=== PATIENT | female | born 1980 | race Caucasian/White ===

== ENCOUNTER 2018-08-11 13:54 | Emergency (ER) | payer BC, OTHER ==
--- OUTSIDE RECORDS SUMMARY | 2018-08-11 13:59 | XMS REPORT | Continuity of Care Document ---
:1980 External Reference #:[id number] Author Name Darnell Barbosa N.P. Address [address] [place] [address] [address] [place] [address] Care Team Providers Name Role Phone Jessica Thomas MD Care Team Information Transplanter Orchid Unavailable Payers Type Date Identification Numbers Payment Provider Subscriber Effective: Policy Number: [id number] [facility] Tracie [place] 2015 re PayID: [id number] [employer] [address] [place] [address] Expires: 2015 Policy Number: Medicaid/[employer] Tracie Linden [place] [id number] PayID: [id number] [address] [place] [address] Effective: 2010 Policy Number: [id number] [employer] Tracie Linden J[place] Expires: 2010 [address] [address] [place] [address] Advance Directives Description No Information Available Problems Date Description Provider Status Onset: Anxiety state 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 Active Onset: Depressive disorder Jessica Thomas M.D. Active Onset: Tobacco user Jessica Thomas M.D. Active Onset: Allergic rhinitis Jessica Thomas M.D. 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 Active Onset: 05/23/2015 Major depressive disorder, single Jessica Thomas M.D. Active episode, unspecified Onset: 05/23/2015 Other malaise Jessica Thomas M.D. Active Family History Date Family Member(s) Problem(s) Comments Father No Current Problems Father 64 Mother No Current Problems Mother 62 Children 2 First Son 15 First Son No Current Problems Second Son 10 Second Son No Current Problems Siblings 1 Siblings None Social History Type Date Description Comments Sex Unknown Marital Status Legal Status: Never Tobacco Use Start: Unknown End: Former Cigarette Smoker Unknown Smoking Status Reviewed: 09/19/17 Former Cigarette Smoker ETOH Use Rarely consumed alcohol in the past Tobacco Use Start: Unknown End: Patient is a former smoker QUIT JANUARY 2017 Unknown Allergies, Adverse Reactions, Alerts Description No Known Drug Allergies Medications Medication Date Status Form Strength Qnty SIG Indications Ordering Provider Benadryl Active Tablets 25mg 60tabs 2 tab by J30.9 William, Allergy 018 mouth every Ahmad M., night at M.D. bedtime as needed congestion Amoxicillin/C Active Tablets 875-125mg 30tabs 1 tab by J01.40 William, lavulanate 018 mouth twice Ahmad M., Potassium a day M.D. Zyrtec Active Tablets 10mg 30tabs 1 by mouth J30.9 William, Allergy 014 every day Jessica Morelos M.D. Proair HFA Active Aerosol 108(90Base 17gm inhale 2 J45.909 William 014 ) mcg/Act puffs by Ahmad M., mouth every M.D. 4 hours if needed R06.02 Fluticasone 12/18/2013 Active Suspension 50mcg/Act 1bottle 2 sprays J30.9 William, Propionate to each Ahmad nostril M. M.D. every day Xanax 11/19/2011 Active Tablets 0.5mg 90tabs 1 tab by F41.9 William, mouth Ahmad three M., M.D. times a day as needed G47.00 Citalopram 11/19/2011 Active Tablets 40mg 90tabs take one F41.9 William, Hydrobromide tablet by Jessica Morelos, mouth at M.D. bedtime F32.9 R53.81 Levofloxacin Hx Tablets 500mg 10tabs tab 1 by mouth J45.909 William, Jessica 8 - every day Tran Morelos 8 Advair Diskus Hx Aerosol 250-50mc 60units inhale one R06.02 William, mad 7 - g/Dose puff by mouth Tran Morelos twice a day 7 J45.909 Prednisone 08/29/2016 - Hx Tablets 20mg 18tabs 3 tab by mouth J45.51 William, 09/08/2016 daily 3 days, Ahmad then 2 tab Tran oMrelos daily x 3 d , then 1 tab daily 3d Levofloxacin 08/29/2016 - Hx Tablets 500mg 10tabs tab 1 by mouth J20.9 William, 09/08/2016 every day Jessica Morelos M.D. Tamiflu 08/29/2016 - Hx Capsules 75mg 10caps Tab One bid B34.9 William, 09/03/2016 Jessica Morelos M.D. Amoxicillin 07/26/2016 - Hx Tablets 500mg 40tabs 2 by mouth J18.9 William , 08/04/2016 twice a day Jessica Morelos M.D. Prednisone 07/26/2016 - Hx Tablets 20mg 18tabs 2 tab by mouth J20.9 William, 08/10/2016 daily 4 days, Ahmad 30 Tran Morelos mgx3d,[id number],1 0mgx7d Ceftriaxone 07/26/2016 - Hx Solution 1gm injection J18.9 William, Sodium 07/27/2016 Rec intramuscular r Jessica buttock x1 Tran Morelos Advair Diskus 11/10/2015 - Hx Aerosol 250-50 60units inhale one puff R06.02 William, 06/26/2016 mcg/Do by mouth twice Ahmad se a day Tran Morelos J45.909 Amoxicillin 11/10/2015 - Hx Tablets 500mg 40tabs 2 by mouth H66.93 William, 11/20/2015 twice a Ahmad M., day M.D. Wellbutrin XL 06/22/2015 - Hx Tablets ER 150mg 60tabs start 1 by F17.211 William, 10/01/2016 24HR mouth Ahmad M., twice M.D. Amoxicillin 12/15/2014 - Hx Tablets 500mg 30tabs 1 by mouth 382.9 William , 12/24/2014 three Ahmad M., times a M.D. day 466.0 461.8 Clarithromycin 06/22/2014 - Hx Tablets 500mg 20tabs 1 by mouth 466.0 William, mad 07/01/2014 twice a day M., MJudiD. 382.9 461.8 Prednisone 06/22/2014 - Hx Tablets 20mg 8tabs 2 tab [facility] 466.0 [facility] mouth daily 4 M., M.D. days 786.05 478.19 Work Note 04/21/2014 - Hx Tracie will be Thad 10/01/2016 oow on Monica, SENIOR GEOTECHNICAL ENGINEER 04/22/2014 and may return on 04/23/2014. Thank you. Naproxen 02/03/2014 - Hx Tablets 500mg 60tab 1 tab by mouth [facility] s twice a day as MJudi MJudiD. needed pain Cephalexin 02/03/2014 - Hx Capsules 500mg 20cap 1 tab by mouth 681.1 William, mad 02/11/2014 s twice a day x10 0 M., M.D. days Amoxicillin 11/13/2013 - Hx Tablets 500mg 20tab 1 by mouth 382.9 William , mad 12/15/2014 s twice a day M., M.D. 462 461.9 Mucinex Maximum 11/13/2013 - Hx Tablets ER 1200mg 30tabs 1 po bid 382.9 William, Strength 11/17/2013 12HR AhTamy MccallD. Amoxicillin 09/21/2013 - Hx Tablets 500mg 20tabs 1 by 382.9 William, 10/01/2013 mouth Jessica Morelos, twice a M.D. day Azithromycin 06/29/2013 - Hx Tablets 250mg 1pack z kai uad 461.8 William, 07/04/2013 Jessica Morelos M.D. 382.9 Prednisone 06/29/2013 - Hx Tablets 20mg 8tabs 2 tab by 461.8 William, Jessica 07/03/2013 mouth daily 4 M., M.D. days 786.05 478.19 Ondansetron Odt 03/12/2013 - Hx Tablets 4mg 30tabs 1 tab q6 787.01 [facility], 03/16/2013 Dispers hours prn Jessica Morelos, for nausea M.D. Clarithromycin 01/01/2013 - Hx Tablets 500mg 20tabs 1 tab by 466.0 William, 01/12/2013 mouth x Jessica Morelos, 10d M.DJudi 461.8 382.9 Prednisone 01/01/2013 - Hx Tablets 20mg 8tabs 2 tab by 466.0 Willima, michael 01/07/2013 mouth daily 4 M., M.DJudi days 786.05 478.19 Medications Administered in Office Medication Date Status Form Strength Qnty SIG Indications Ordering Provider Bob 250 07/26/20 Administered Injection [facility], 16 Jessica Morelos M.D. Immunizations CPT Code Status Date Vaccine Lot # [id number] Given 05/27/2015 TDaP 27576 Given 06/29/2014 Flu Vaccine [id number] Given 06/22/2014 Flu Vaccine [id number] Vital Signs Date Vital Result Comment 07/16/2018 2:18pm BP Systolic 118 mmHg BP Diastolic 68 mmHg Height 64 inches 5'4" Weight 160.00 lb BMI (Body Mass Index) 27.5 kg/m2 Heart Rate 71 /min Respiratory Rate 16 /min 06/17/2018 2:38pm BP Systolic 110 mmHg BP Diastolic 68 mmHg Height 64 inches 5'4" Weight 153.00 lb BMI (Body Mass Index) 26.3 kg/m2 Heart Rate 69 /min Respiratory Rate 16 /min 05/15/2018 10:03am BP Systolic 127 mmHg BP Diastolic 62 mmHg Height 64 inches 5'4" Weight 157.00 lb BMI (Body Mass Index) 26.9 kg/m2 Heart Rate 57 /min Respiratory Rate 14 /min 04/07/2018 2:26pm BP Systolic 110 mmHg BP Diastolic 62 mmHg Height 64 inches 5'4" Weight 153.00 lb BMI (Body Mass Index) 26.3 kg/m2 Heart Rate 76 /min Respiratory Rate 14 /min 03/06/2018 2:20pm BP Systolic 118 mmHg BP Diastolic 62 mmHg Height 64 inches 5'4" Weight 155.00 lb BMI (Body Mass Index) 26.6 kg/m2 Heart Rate 68 /min Respiratory Rate 16 /min 02/04/2018 2:33pm BP Systolic 118 mmHg BP Diastolic 68 mmHg Height 64 inches 5'4" Weight 160.00 lb BMI (Body Mass Index) 27.5 kg/m2 Heart Rate 96 /min Respiratory Rate 18 /min 01/02/2018 2:50pm BP Systolic 100 mmHg BP Diastolic 62 mmHg Height 64 inches 5'4" Weight 158.00 lb BMI (Body Mass Index) 27.1 kg/m2 Heart Rate 76 /min Respiratory Rate 18 /min 11/28/2017 1:24pm BP Systolic 110 mmHg BP Diastolic 62 mmHg Height 64 inches 5'4" Weight 148.00 lb BMI (Body Mass Index) 25.4 kg/m2 Heart Rate 68 /min Respiratory Rate 18 /min 10/29/2017 2:31pm BP Systolic 110 mmHg BP Diastolic 70 mmHg Height 64 inches 5'4" Weight 150.00 lb BMI (Body Mass Index) 25.7 kg/m2 Heart Rate 72 /min Respiratory Rate 18 /min 09/19/2017 2:32pm BP Systolic 110 mmHg BP Diastolic 62 mmHg Height 64 inches 5'4" Weight 150.00 lb BMI (Body Mass Index) 25.7 kg/m2 Heart Rate 79 /min Respiratory Rate 18 /min 08/14/2017 2:26pm BP Systolic 100 mmHg BP Diastolic 62 mmHg Height 64 inches 5'4" Weight 150.00 lb BMI (Body Mass Index) 25.7 kg/m2 Heart Rate 75 /min Respiratory Rate 18 /min 07/15/2017 2:17pm BP Systolic 108 mmHg BP Diastolic 64 mmHg Height 64 inches 5'4" Weight 146.00 lb BMI (Body Mass Index) 25.1 kg/m2 Heart Rate 83 /min Respiratory Rate 16 /min 01/14/2017 2:33pm BP Systolic 108 mmHg BP Diastolic 60 mmHg Height 64 inches 5'4" Weight 144.00 lb BMI (Body Mass Index) 24.7 kg/m2 Heart Rate 72 /min Respiratory Rate 16 /min 11/27/2016 2:51pm BP Systolic 110 mmHg BP Diastolic 68 mmHg Height 64 inches 5'4" Weight 146.00 lb BMI (Body Mass Index) 25.1 kg/m2 Heart Rate 91 /min Respiratory Rate 18 /min 10/01/2016 2:23pm BP Systolic 118 mmHg BP Diastolic 68 mmHg Height 64 inches 5'4" Weight 149.00 lb BMI (Body Mass Index) 25.6 kg/m2 Heart Rate 97 /min Respiratory Rate 18 /min 08/29/2016 11:28am BP Systolic 100 mmHg BP Diastolic 70 mmHg Height 64 inches 5'4" Weight 144.00 lb BMI (Body Mass Index) 24.7 kg/m2 Heart Rate 89 /min Respiratory Rate 18 /min 08/14/2016 2:38pm BP Systolic 100 mmHg BP Diastolic 62 mmHg Height 64 inches 5'4" Weight 153.00 lb BMI (Body Mass Index) 26.3 kg/m2 Heart Rate 78 /min Respiratory Rate 20 /min 07/26/2016 10:38am BP Systolic 118 mmHg BP Diastolic 70 mmHg Height 64 inches 5'4" Weight 152.00 lb BMI (Body Mass Index) 26.1 kg/m2 Heart Rate 62 /min Respiratory Rate 20 /min 07/12/2016 3:21pm BP Systolic 124 mmHg BP Diastolic 78 mmHg Height 64 inches 5'4" Weight 149.00 lb BMI (Body Mass Index) 25.6 kg/m2 Heart Rate 87 /min Respiratory Rate 18 /min 11/10/2015 3:00pm BP Systolic 119 mmHg BP Diastolic 74 mmHg Height 64 inches 5'4" Weight 150.00 lb BMI (Body Mass Index) 25.7 kg/m2 Heart Rate 82 /min Respiratory Rate 18 /min 09/27/2015 3:14pm BP Systolic 105 mmHg BP Diastolic 58 mmHg Height 64 inches 5'4" Weight 147.00 lb BMI (Body Mass Index) 25.2 kg/m2 Heart Rate 88 /min Body Temperature 96.4 F Respiratory Rate 20 /min 06/22/2015 3:10pm BP Systolic 121 mmHg BP Diastolic 68 mmHg Height 64 inches 5'4" Weight 147.00 lb BMI (Body Mass Index) 25.2 kg/m2 Heart Rate 77 /min Respiratory Rate 18 /min 05/23/2015 3:55pm BP Systolic 120 mmHg BP Diastolic 80 mmHg Height 64 inches 5'4" Weight 144.00 lb BMI (Body Mass Index) 24.7 kg/m2 Heart Rate 72 /min Respiratory Rate 18 /min 04/20/2015 4:08pm BP Systolic 98 mmHg BP Diastolic 58 mmHg Height 64 inches 5'4" Weight 142.00 lb BMI (Body Mass Index) 24.4 kg/m2 Heart Rate 88 /min Respiratory Rate 15 /min 04/06/2015 3:39pm BP Systolic 116 mmHg BP Diastolic 82 mmHg Height 64 inches 5'4" Weight 144.00 lb BMI (Body Mass Index) 24.7 kg/m2 Heart Rate 80 /min Respiratory Rate 16 /min 03/23/2015 3:19pm BP Systolic 117 mmHg BP Diastolic 57 mmHg Height 64 inches 5'4" Weight 144.00 lb BMI (Body Mass Index) 24.7 kg/m2 Heart Rate 77 /min Respiratory Rate 16 /min 12/15/2014 4:20pm BP Systolic 115 mmHg BP Diastolic 67 mmHg Height 64 inches 5'4" Weight 152.00 lb BMI (Body Mass Index) 26.1 kg/m2 Heart Rate 85 /min Body Temperature 97.3 F Respiratory Rate 16 /min 09/16/2014 4:09pm BP Systolic 129 mmHg BP Diastolic 82 mmHg Height 64 inches 5'4" Weight 157.00 lb BMI (Body Mass Index) 26.9 kg/m2 Heart Rate 98 /min Respiratory Rate 15 /min 08/16/2014 3:59pm BP Systolic 112 mmHg BP Diastolic 74 mmHg Height 64 inches 5'4" Weight 161.00 lb BMI (Body Mass Index) 27.6 kg/m2 Heart Rate 72 /min Respiratory Rate 16 /min 07/19/2014 4:09pm BP Systolic 126 mmHg BP Diastolic 72 mmHg Height 64 inches 5'4" Weight 165.00 lb BMI (Body Mass Index) 28.3 kg/m2 Heart Rate 76 /min Respiratory Rate 14 /min 06/22/2014 4:10pm BP Systolic 123 mmHg BP Diastolic 78 mmHg Height 64 inches 5'4" Weight 164.00 lb BMI (Body Mass Index) 28.1 kg/m2 Heart Rate 97 /min Respiratory Rate 18 /min 05/24/2014 3:54pm BP Systolic 122 mmHg BP Diastolic 68 mmHg Height 64 inches 5'4" Weight 162.00 lb BMI (Body Mass Index) 27.8 kg/m2 Heart Rate 86 /min Respiratory Rate 18 /min 04/21/2014 2:25pm BP Systolic 98 mmHg BP Diastolic 71 mmHg Height 64 inches 5'4" Weight 155.00 lb BMI (Body Mass Index) 26.6 kg/m2 Heart Rate 69 /min Body Temperature 96.0 F Respiratory Rate 18 /min 04/15/2014 3:52pm BP Systolic 124 mmHg BP Diastolic 78 mmHg Height 64 inches 5'4" Weight 164.00 lb BMI (Body Mass Index) 28.1 kg/m2 Respiratory Rate 18 /min 03/25/2014 3:06pm BP Systolic 104 mmHg BP Diastolic 69 mmHg Height 64 inches 5'4" Weight 160.00 lb BMI (Body Mass Index) 27.5 kg/m2 Heart Rate 94 /min Body Temperature 98.0 F Respiratory Rate 18 /min 02/03/2014 2:06pm BP Systolic 102 mmHg BP Diastolic 62 mmHg Height 64 inches 5'4" Weight 160.00 lb BMI (Body Mass Index) 27.5 kg/m2 Heart Rate 96 /min Respiratory Rate 18 /min 01/12/2014 4:02pm BP Systolic 107 mmHg BP Diastolic 67 mmHg Height 64 inches 5'4" Weight 156.00 lb BMI (Body Mass Index) 26.8 kg/m2 Heart Rate 79 /min Respiratory Rate 18 /min 12/18/2013 2:16pm BP Systolic 109 mmHg BP Diastolic 71 mmHg Height 64 inches 5'4" Weight 158.00 lb BMI (Body Mass Index) 27.1 kg/m2 Heart Rate 79 /min Body Temperature 97.5 F Respiratory Rate 20 /min 12/15/2013 4:02pm BP Systolic 101 mmHg BP Diastolic 55 mmHg Height 64 inches 5'4" Weight 158.00 lb BMI (Body Mass Index) 27.1 kg/m2 Heart Rate 81 /min Respiratory Rate 18 /min 11/13/2013 11:20am BP Systolic 128 mmHg BP Diastolic 76 mmHg Height 64 inches 5'4" Weight 159.00 lb BMI (Body Mass Index) 27.3 kg/m2 Heart Rate 69 /min Body Temperature 98.2 F Respiratory Rate 18 /min 10/20/2013 2:00pm BP Systolic 113 mmHg BP Diastolic 71 mmHg Height 64 inches 5'4" Weight 156.00 lb BMI (Body Mass Index) 26.8 kg/m2 Heart Rate 66 /min Respiratory Rate 18 /min 09/21/2013 3:35pm BP Systolic 115 mmHg BP Diastolic 72 mmHg Height 64 inches 5'4" Weight 156.00 lb BMI (Body Mass Index) 26.8 kg/m2 Heart Rate 84 /min Body Temperature 97.6 F 08/25/2013 9:47am BP Systolic 106 mmHg BP Diastolic 67 mmHg Height 64 inches 5'4" Weight 154.00 lb BMI (Body Mass Index) 26.4 kg/m2 Heart Rate 81 /min Respiratory Rate 18 /min 07/28/2013 10:39am BP Systolic 117 mmHg BP Diastolic 71 mmHg Height 64 inches 5'4" Weight 156.00 lb BMI (Body Mass Index) 26.8 kg/m2 Heart Rate 74 /min Respiratory Rate 18 /min 06/29/2013 10:28am BP Systolic 110 mmHg BP Diastolic 72 mmHg Height 64 inches 5'4" Weight 147.00 lb BMI (Body Mass Index) 25.2 kg/m2 Heart Rate 76 /min Body Temperature 97.8 F Respiratory Rate 20 /min 06/04/2013 9:42am BP Systolic 103 mmHg BP Diastolic 65 mmHg Height 64 inches 5'4" Weight 145.00 lb BMI (Body Mass Index) 24.9 kg/m2 Heart Rate 63 /min Respiratory Rate 20 /min 05/06/2013 10:09am BP Systolic 118 mmHg BP Diastolic 74 mmHg Height 64 inches 5'4" Weight 141.00 lb BMI (Body Mass Index) 24.2 kg/m2 Heart Rate 76 /min Respiratory Rate 16 /min 04/07/2013 1:29pm BP Systolic 112 mmHg BP Diastolic 70 mmHg Height 64 inches 5'4" Weight 145.00 lb BMI (Body Mass Index) 24.9 kg/m2 Heart Rate 73 /min Respiratory Rate 20 /min 03/17/2013 10:25am BP Systolic 110 mmHg BP Diastolic 62 mmHg Height 64 inches 5'4" Weight 155.00 lb BMI (Body Mass Index) 26.6 kg/m2 Heart Rate 81 /min Body Temperature 97.3 F Respiratory Rate 20 /min 03/12/2013 10:45am BP Systolic 124 mmHg BP Diastolic 64 mmHg Height 64 inches 5'4" Weight 155.00 lb BMI (Body Mass Index) 26.6 kg/m2 Heart Rate 77 /min Body Temperature 97.7 F Respiratory Rate 20 /min 02/03/2013 9:54am BP Systolic 102 mmHg BP Diastolic 68 mmHg Height 64 inches 5'4" Weight 165.00 lb BMI (Body Mass Index) 28.3 kg/m2 Heart Rate 69 /min Respiratory Rate 20 /min 01/01/2013 10:56am BP Systolic 118 mmHg BP Diastolic 60 mmHg Height 64 inches 5'4" Weight 163.00 lb BMI (Body Mass Index) 28.0 kg/m2 Heart Rate 91 /min Body Temperature 99.1 F Respiratory Rate 18 /min 12/02/2012 9:26am BP Systolic 110 mmHg BP Diastolic 68 mmHg Height 64 inches 5'4" Weight 164.00 lb BMI (Body Mass Index) 28.1 kg/m2 Heart Rate 74 /min Respiratory Rate 14 /min 11/04/2012 11:40am BP Systolic 116 mmHg BP Diastolic 72 mmHg Height 64 inches 5'4" Weight 165.00 lb BMI (Body Mass Index) 28.3 kg/m2 Heart Rate 91 /min Respiratory Rate 18 /min 10/06/2012 12:57pm BP Systolic 118 mmHg BP Diastolic 70 mmHg Height 64 inches 5'4" Weight 163.00 lb BMI (Body Mass Index) 28.0 kg/m2 Heart Rate 83 /min Respiratory Rate 20 /min 09/02/2012 2:03pm BP Systolic 110 mmHg BP Diastolic 60 mmHg Height 64 inches 5'4" Weight 157.00 lb BMI (Body Mass Index) 26.9 kg/m2 Heart Rate 78 /min Respiratory Rate 16 /min 07/29/2012 11:23am BP Systolic 110 mmHg BP Diastolic 80 mmHg Height 64 inches 5'4" Weight 154.00 lb BMI (Body Mass Index) 26.4 kg/m2 Heart Rate 78 /min Respiratory Rate 14 /min 06/17/2012 10:00am BP Systolic 112 mmHg BP Diastolic 76 mmHg Height 64 inches 5'4" Weight 142.00 lb BMI (Body Mass Index) 24.4 kg/m2 Heart Rate 60 /min Respiratory Rate 16 /min 04/29/2012 10:27am BP Systolic 125 mmHg BP Diastolic 63 mmHg Height 64 inches 5'4" Weight 1.00 lb BMI (Body Mass Index) 0.2 kg/m2 Heart Rate 70 /min Respiratory Rate 15 /min 11/20/2011 10:27am BP Systolic 114 mmHg BP Diastolic 76 mmHg Height 64 inches 5'4" Weight 160.00 lb BMI (Body Mass Index) 27.5 kg/m2 Heart Rate 82 /min Results Test Date Facility Test Result H/L Range Note CBC With Diff 05/15/2018 [facility] WBC 7.9 10*3/uL (4.1-11.0) [address] (607)- - RBC 5.88 10*6/uL High (4.00-5.40) HGB 11.9 g/dL Low (12.0-16.0) HCT 38.5 % (36.0-47.0) MCV 65.5 fL Low (80.0-95.0) MCH 20.2 pg Low (27.0-32.0) MCHC 30.9 g/dL Low (32.0-36.0) RDW 16.6 % High (10.5-14.5) PLT 269 10*3/uL (150-450) MPV 9.7 fL (7.1-10.7) Neut % 50.5 % (35.0-75.0) Lymph % 37.1 % (16.0-52.0) Sterling % 4.1 % (0.0-8.0) Eos % 6.8 % High (0.0-5.0) Baso % 1.5 % (0.0-4.0) Neut # 4.0 10*3/uL (1.8-7.7) Lymph # 2.9 10*3/uL (1.2-4.8) Sterling # 0.3 10*3/uL (0.0-0.8) Eos # 0.5 10*3/uL (0.0-0.5) Baso # 0.1 10*3/uL (0.0-0.2) CMP 05/15/2018 [facility] Sodium 143 mmol/L (136-145) [address] (607)- - Potassium 4.3 mmol/L (3.6-5.2) Chloride 110 mmol/L High (100-108) Co2 24 mmol/L (22-31) Anion Gap 9 mmol/L (7-16) Urea Nitrogen 17 mg/dL (7-24) Creatinine 0.75 mg/dL (0.60-1.00) BUN/Creat Ratio 22.7 RATIO High (10.0-20.0) Glucose 73 mg/dL (70-99) Calcium 8.6 mg/dL (8.4-10.2) Total Protein 6.7 g/dL (6.4-8.2) Albumin 4.1 g/dL (3.5-4.6) Globulin 2.6 g/dL Low (2.7-4.3) Alb/Glob Ratio 1.6 RATIO Alkaline Phosphatase 44 U/L Low (45-117) Bilirubin,Total 0.5 mg/dL (0.0-1.0) Ast (Sgot) 29 U/L (11-39) Alt (SGPT) 26 U/L (12-78) GFR >60 ml/min/1.73m2 (>59) GFR ( Amer) >60 ml/min/1.73m2 (>59) GFR Interpretation <SEE NOTE> 1 Lipid 05/15/2018 [facility] Cholesterol @ 183 mg/dL (0-200) [address] (607)- - Triglyceride @ 71 mg/dL (30-200) HDL Cholesterol @ 53 mg/dL (>40) 2 Chol/HDL Ratio 3.5 RATIO 3 LDL Chol (Calc) 116 mg/dL (<130) 4 Laboratory test 05/15/2018 [facility] 25 Hydroxy Vit 33 ng/mL (31-100 ) 5 finding [address] @ (607)- - TSH,Ultrasensitive @ 1.130 mIU/L (0.360-4.170) Basic Metabolic Panel 01/24/2017 [facility] Glucose 136 mg/dL High 74-106 6 BUN 13 mg/dL 7-18 Creatinine 0.7 mg/dL 0.6-1.3 Glom Filtration Rate, Estimate >60 mL/min >60 If >60 mL/min >60 7 BUN/Creat 18.5 ratio Sodium 142 mmol/L 136-145 Potassium 4.4 mmol/L 3.5-5.1 Chloride 110 mmol/L High 98-107 Carbon Dioxide 20 mmol/L Low 21-32 Anion Gap 12 mEq/L 8-16 Calcium 8.5 mg/dL 8.5-10.1 CBS W/Automated Diff 01/23/2017 [facility] White Blood Count 8.6 K/uL 3.1- 10.7 8 Red Blood Count 5.64 M/uL High 3.90-5.40 Hemoglobin 11.8 gm/dL 11.6-15.8 Hematocrit 35.1 % Low 36.0-46.1 Mean Cell Volume 62.2 fl Low 80.9-99.0 Mean Corpuscular HGB 20.9 pg Low 25.9-32.7 Mean Corpuscular HGB Conc 33.6 g/dL 30.8-34.3 Platelet Count 270 K/uL 150-400 Red Cell Distri Width SD 34.8 fl 3-47 Red Cell Distri Width %CV 16.1 % High 11.7-14.4 Mean Platelet Volume 10.2 fL 8.9-12.4 9 Neut# 7.80 K/uL High 1.8-7.0 Lymph # 0.53 K/uL Low 1.0-4.0 Sterling # 0.09 K/uL Low 0.3-0.9 Eos # 0.12 K/uL 0.0-0.5 Baso # 0.05 K/uL 0.0-0.1 Slide Review 01/23/2017 [facility] Slide Review DIFF ORDERED Path Review: 01/23/2017 [facility] Path Review: INDICATED,SLIDE 10 <SEE NOTE> Differential-WBC 01/23/2017 [facility] Total Cells Counted 100 #CELLS Confirm Neutrophils% 90 % High 33-73 Lymph% 5 % Low 20-42 Monocyte% 2 % 0-10 Eosinophil% 3 % 0-5 Platelet Estimate NORMAL Polychromasia 0-1+ Hypochromia 1+ Anisocytosis 2+ Microcytosis 3+ Basophilic Stippling 0-1+ Elliptocytes 0-1+ Acanthocytes 0-1+ Laboratory test 01/23/2017 [facility] D-Dimer, 0.40 ug/mL 11 finding Quantitative Comprehensive 01/23/2017 [facility] Glucose 138 mg/dL High 74-106 12 Metabolic Panel BUN 12 mg/dL 7-18 Creatinine 0.7 mg/dL 0.6-1.3 Glom Filtration Rate, Estimate >60 mL/min >60 If >60 mL/min >60 13 BUN/Creat 17.1 ratio Sodium 142 mmol/L 136-145 Potassium 3.3 mmol/L Low 3.5-5.1 Chloride 109 mmol/L High 98-107 Carbon Dioxide 25 mmol/L 21-32 Anion Gap 8 mEq/L 8-16 Calcium 8.2 mg/dL Low 8.5-10.1 Total Protein 6.4 g/dL 6.4-8.2 Albumin 3.6 g/dL 3.4-5.0 Globulin 2.8 g/dL 1.9-4.3 Alb/Glob 1.3 ratio Bilirubin,Total 0.4 mg/dL 0.2-1.0 Sgot/Ast 20 U/L 15-37 SGPT/Alt 39 U/L 12-78 Alkaline Phosphatase 61 U/L 45-117 Arterial Blood Gas 01/23/2017 [facility] Arterial Blood Gas pH 7.41 7.35- 7.45 Arterial Blood Gas Pco2 35 mmHg 35-45 Arterial Blood Gas Po2 73 mmHg Low 80-105 ABG Hco3 22 mEq/L 22-26 ABG Base Excess -2 mEq/L -2-2 ABG O2 Saturation 94 % 90-99 Allens Test Performed? YES Arterial Blood Gas Type OXYGEN Arterial Blood Gas L/M 4 L/MIN 0-20 Arterial Blood Gas Del. OXYMASK Arterial Blood Gas Site R.BRAC.ART. Rapid Influenza A 08/29/2016 [facility] Influenza A NEGATIVE Negative 14 & B Molecular Molecular Influenza B Molecular NEGATIVE Negative Laboratory test 08/29/2016 [facility] Rapid Influenza SEE RESULT 15 finding A & B Antigen BELOW Laboratory test 12/15/2013 [facility] Thyroid Stim 4.53 uIU/mL 0.49-4. finding Hormone 67 Free T4 0.89 ng/dL 0.71-1.85 LDL Cholesterol Profile 12/15/2013 [facility] Cholesterol 184 mg/dL 120- 200 Triglycerides 157 mg/dL 16-231 HDL Cholesterol 41 mg/dL 29-83 LDL-Cholesterol 112 mg/dL 62-185 Comprehensive Metabolic Panel 12/15/2013 [facility] Glucose 90 mg/dL 76- 115 BUN 26 mg/dL High 5-23 Creatinine 0.6 mg/dL 0.5-1.4 Glom Filtration Rate, Estimate >60 mL/min >60 If >60 mL/min >60 16 BUN/Creat 43.3 ratio Sodium 143 mmol/L 136-145 Potassium 3.7 mmol/L 3.5-5.1 Chloride 111 mmol/L High 98-107 Carbon Dioxide 24 mEq/L 18-29 Anion Gap 12 mEq/L 8-16 Calcium 8.6 mg/dL 8.5-10.1 Total Protein 6.4 g/dL 6.3-8.0 Albumin 3.8 g/dL 3.5-5.0 Globulin 2.6 g/dL 1.9-4.3 Alb/Glob 1.5 ratio Bilirubin,Total 0.3 mg/dL 0.2-1.2 Sgot/Ast 9 U/L Low 16-40 SGPT/Alt 22 U/L Low 30-65 Alkaline Phosphatase 50 U/L 50-136 CBC W/Automated Diff 12/15/2013 [facility] White Blood Count 10.1 K/uL 3.1 -10.7 Red Blood Count 5.55 M/uL High 3.90-5.40 Hemoglobin 11.7 gm/dL 11.6-15.8 Hematocrit 35.4 % Low 36.0-46.1 Mean Cell Volume 63.8 fl Low 80.9-99.0 17 Mean Corpuscular HGB 21.1 pg Low 25.9-32.7 Mean Corpuscular HGB Conc 33.1 g/dL 30.8-34.3 Platelet Count 318 K/uL 155-360 Red Cell Distri Width SD 36.0 fl 3-47 Red Cell Distri Width %CV 16.5 % High 11.7-14.4 Mean Platelet Volume 11.6 fL 8.9-12.4 Neut% 42.6 % 40.4-72.8 Lymph % 45.7 % 17.0-46.1 Sterling % 6.2 % 4.3-13.2 Eo% 5.0 % 0.0-6.6 Bas% 0.5 % 0.0-1.1 Neut# 4.30 K/uL 1.0-7.0 Lymph # 4.60 K/uL High 0.8-3.4 Sterling # 0.62 K/uL 0.3-0.9 Eos # 0.50 K/uL 0.0-0.5 Baso # 0.05 K/uL 0.0-0.1 1 NORMAL KIDNEY FUNCTION OR MILD DISEASE - GFR >OR=60 CHRONIC KIDNEY DISEASE - GFR 15 - 59 RENAL FAILURE - GFR <15 Est. GFR calculation based on the MDRD study equation, which assumes a steady state for creatinine. Est. GFR should not be used for medication dosing. 2 PER NCEP ATP III GUIDELINES: RESULTS LOWER THAN 40 MG/DL ARE SUGGESTIVE OF INCREASED RISK FOR CORONARY ARTERY DISEASE. RESULTS > OR=TO 60 MG/DL ARE CONSIDERED A NEGATIVE RISK FACTOR. 3 INTERPRETATION OF CHOL-HDL RATIO CHD RISK FEMALE MALE VERY HIGH >8.3 >14.3 HIGH 5.6- 8.3 6.7- 14.3 AVERAGE 3.7- 5.6 4.0- 6.7 BELOW AVERAGE 2.5- 3.7 2.7- 4.0 PROTECTED <2.5 <2.7 4 PER NCEP ATP III GUIDELINES: OPTIMAL < 100 NEAR OPTIMAL 100 - 129 BORDERLINE HIGH 130 - 159 HIGH 160 - 189 VERY HIGH > 189 5 A REVIEW OF THE LITERATURE SUGGESTS THE FOLLOWING RANGES FOR THE CLASSIFICATION OF 25-OH VITAMIN D STATUS: VITAMIN D STATUS 25-OH VITAMIN D DEFICIENCY <20 NG/ML INSUFFICIENCY 20-30 NG/ML SUFFICIENCY 31 - 100 NG/ML TOXICITY > 100 NG/ML A PEDIATRIC REFERENCE RANGE HAS NOT BEEN ESTABLISHED USING THIS METHOD. 6 ASTHMA EXACERBATION 7 Note: Persistent reduction for 3 months or more in an eGFR <60 mL/min/1.73 m2 defines CKD. Patients with eGFR values >/=60 mL/min/1.73 m2 may also have CKD if evidence of persistent proteinuria is present. The original MDRD equation for estimated GFR is not valid for patients less than 18 years of age. Additional information may be found at www.kdoqi.org. 8 SOB ASTHMA EXACERBATION 9 01/23/17 032: NEUT% previously reported as: 90.8 H % Amended result called to: [] - 01/23/17 at 32001/23/17 032: LYMPH % previously reported as: 6.2 L % Amended result called to: [] 01/23/17 at 32001/23/17 032: MONO % previously reported as: 1.0 L % Amended result called to: [] - 01/23/17 at 0321 01/23/17 0321: EO% previously reported as: 1.4 % Amended result called to: [] - 01/23/17 at 0321 01/23/17 0321: BAS% previously reported as: 0.6 % Amended result called to: [] - 01/23/17 at 0321 10 INDICATED,SLIDE SENT Hematology Consultation - Revised Report Final Diagnosis Peripheral blood smear: - Red blood cells show microcytosis and anisopoikilocytosis - Platelets are unremarkable. - White blood cells are within normal limits. - Clinical workup for iron deficiency anemia is suggested. Clinical mendel: hemoglobin 11.8g/dl, MCV 62.2fl, Ramila Sloan M.D. Pathologist Reported 01/24/2017 6:28 PM Report Signed Electronically Performed at: [facility], [facility] [address] [address] 11 <=0.49 ug/mL - Low likelihood of DIC, DVT or Pulmonary Embolism >0.49 ug/mL - Additional testing should be done to rule out DIC, DVT, or Pulmonary embolism as clinically indicated. ([facility] has established a 97.89% negative predictive value for thrombotic disease when a cutoff value of 0.5 ug/mL is used.) 12 SOB 13 Note: Persistent reduction for 3 months or more in an eGFR <60 mL/min/1.73 m2 defines CKD. Patients with eGFR values >/=60 mL/min/1.73 m2 may also have CKD if evidence of persistent proteinuria is present. The original MDRD equation for estimated GFR is not valid for patients less than 18 years of age. Additional information may be found at www.kdoqi.org. 14 Web Consultant: [id number] MICHAELNODionisio BAIG 15 SEE RESULT BELOW Name: TRACIE LANGLEY: [address]: Jason Shah [facility] Acct: [id number] Unit: [id number] AGE: 35 Location: [facility] Re08/29/16 SEX: F Status: REG REF SPEC: [id number] LEXII: 08/29/16-[address]: Jason Shah [facility] REQ: [id number] RECD: 08/29/16 STATUS: COMP _ SOURCE: KHADRA SPDESC: ORDERED: Flu A B Request COMMENTS: [id number] Procedure Result Reported Site Rapid Influenza A B Request Final 08/29/16- 183 ML Specimen received for Influenza A/B Molecular testing * ML - MAIN LAB (PSC1) . END OF REPORT * ML=Testing performed at Main Lab DEPARTMENT OF PATHOLOGY, [address] [place] [address] Torres Vaca M.D. Director [facility] # [id number] 16 Note: Persistent reduction for 3 months or more in an eGFR <60 mL/min/1.73 m2 defines CKD. Patients with eGFR values >/=60 mL/min/1.73 m2 may also have CKD if evidence of persistent proteinuria is present. The original MDRD equation for estimated GFR is not valid for patients less than 18 years of age. Additional information may be found at www.kdoqi.org. 17 Result confirmed by repeat analysis. Procedures Date Code Description Status 06/17/2018 46148 Tympanometry Completed 11/27/2016 96598 Spirometry Completed 07/26/2016 50150 Injection DX/Therapeutic/Prophy Completed 11/10/2015 71850 Tympanometry Completed 09/27/2015 55340 Visual Screening Test Completed 09/27/2015 83511 Audiometry, Bekesy, Screening Completed 05/23/2015 43840 Destruction Flat Wart,Molluscum Contagiosum, Or Milia Up Completed To 14 04/20/2015 62227 Destruction Flat Wart,Molluscum Contagiosum, Or Milia Up Completed To 14 04/06/2015 35473 Destruction Flat Wart,Molluscum Contagiosum, Or Milia Up Completed To 14 03/23/2015 83708 Destruction Flat Wart,Molluscum Contagiosum, Or Milia Up Completed To 14 12/15/2014 96940 Spirometry Completed 12/15/2014 17516 Tympanometry Completed 06/22/2014 68325 Tympanometry Completed 06/22/2014 53157 Spirometry Completed 03/25/2014 22245 Tympanometry Completed 11/13/2013 91770 Tympanometry Completed 06/29/2013 36007 Spirometry Completed 06/29/2013 77764 Tympanometry Completed 03/17/2013 17476 Tympanometry Completed 01/01/2013 73725 Spirometry Completed 01/01/2013 77819 Tympanometry Completed 06/20/2010 53528 Tympanometry Completed 12/08/2009 05483 Spirometry Completed 12/08/2009 16650 Tympanometry Completed 09/05/2007 60492 Tympanometry Completed Encounters Type Date Location Provider Dx Diagnosis Office Visit 07/16/2018 [facility] Darnell Barbosa J45.909 Unspecified asthma, 2:15p N.P. 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 uncomplicated J44.9 Chronic obstructive pulmonary disease, unspecified J30.9 Allergic rhinitis, unspecified L20.9 Atopic dermatitis, unspecified F33.9 Major depressive disorder, recurrent, unspecified M20.12 Hallux valgus (acquired), left foot M26.603 Bilateral temporomandibular joint disorder, unspecified Z79.899 Other long-term (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 F41.9 Anxiety disorder, unspecified G47.00 Insomnia, unspecified H52.4 Presbyopia M25.569 Pain in unspecified knee E78.2 Mixed hyperlipidemia E55.9 Vitamin D deficiency, unspecified F17.211 Nicotine dependence, cigarettes, in remission J01.40 Acute pansinusitis, unspecified R09.81 Nasal congestion R05 Cough H92.03 Otalgia, bilateral Office Visit 05/15/2018 10:00a [facility] Jessica Thomas J45.909 Unspecified asthmaTamy M.D. uncomplicated J44.9 Chronic obstructive pulmonary disease, unspecified J30.9 Allergic rhinitis, unspecified L20.9 Atopic dermatitis, unspecified F33.9 Major depressive disorder, recurrent, unspecified M20.12 Hallux valgus (acquired), left foot M26.603 Bilateral temporomandibular joint disorder, unspecified Z79.899 Other long-term (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 F17.210 Nicotine dependence, cigarettes, uncomplicated F41.9 Anxiety disorder, unspecified G47.00 Insomnia, unspecified H52.4 Presbyopia M25.569 Pain in unspecified knee E78.2 Mixed hyperlipidemia E55.9 Vitamin D deficiency, unspecified Office Visit 04/07/2018 2:30p [facility] Darnell Barbosa J45.909 Unspecified asthma, N.P. uncomplicated J44.9 Chronic obstructive pulmonary disease, unspecified J30.9 Allergic rhinitis, unspecified L20.9 Atopic dermatitis, unspecified F33.9 Major depressive disorder, recurrent, unspecified M20.12 Hallux valgus (acquired), left foot M26.603 Bilateral temporomandibular joint disorder, unspecified Z79.899 Other long-term (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 F17.210 Nicotine dependence, cigarettes, uncomplicated F41.9 Anxiety disorder, unspecified G47.00 Insomnia, unspecified H52.4 Presbyopia M25.569 Pain in unspecified knee Office Visit 03/06/2018 2:15p [facility] Darnell Barbosa J45.909 Unspecified asthma, N.P. 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 uncomplicated J44.9 Chronic obstructive pulmonary disease, unspecified J30.9 Allergic rhinitis, unspecified L20.9 Atopic dermatitis, unspecified F33.9 Major depressive disorder, recurrent, unspecified M20.12 Hallux valgus (acquired), left foot M26.603 Bilateral temporomandibular joint disorder, unspecified Z79.899 Other long-term (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 F17.210 Nicotine dependence, cigarettes, uncomplicated F41.9 Anxiety disorder, unspecified G47.00 Insomnia, unspecified H52.4 Presbyopia M25.569 Pain in unspecified knee Office Visit 11/28/2017 1:00p [facility] Jessica Thomas J45.909 Unspecified asthmaTamy M.D. 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 uncomplicated J44.9 Chronic obstructive pulmonary disease, unspecified J30.9 Allergic rhinitis, unspecified L20.9 Atopic dermatitis, unspecified F33.9 Major depressive disorder, recurrent, unspecified M20.12 Hallux valgus (acquired), left foot M26.603 Bilateral temporomandibular joint disorder, unspecified Z79.899 Other long-term (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 F17.210 Nicotine dependence, cigarettes, uncomplicated F41.9 Anxiety disorder, unspecified G47.00 Insomnia, unspecified Office Visit 09/19/2017 2:30p [facility] Ninfa J30.9 Allergic rhinitis, MICH Diehl unspecified L20.9 Atopic dermatitis, unspecified F33.9 Major depressive disorder, recurrent, unspecified M20.12 Hallux valgus (acquired), left foot M26.603 Bilateral temporomandibular joint disorder, unspecified J45.909 Unspecified asthma, uncomplicated F51.9 Sleep disorder not due to a sub or known physiol cond, unsp Z79.899 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 F17.210 Nicotine dependence, cigarettes, uncomplicated F41.9 Anxiety disorder, unspecified Office Visit 08/14/2017 2:30p [facility] Jason Shah F17.210 Nicotine dependence, SENIOR GEOTECHNICAL ENGINEER cigarettes, uncomplicated F41.9 Anxiety disorder, unspecified Office Visit 07/15/2017 2:15p [facility] Jason Shah F17.210 Nicotine dependence, SENIOR GEOTECHNICAL ENGINEER cigarettes, uncomplicated J45.909 Unspecified asthma, uncomplicated F41.9 Anxiety disorder, unspecified F51.9 Sleep disorder not due to a sub or known physiol cond, unsp F51.9 Sleep disorder not due to a sub or known physiol cond, unsp F41.9 Anxiety disorder, unspecified Z79.899 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 Z79.899 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 F33.9 Major depressive disorder, recurrent, unspecified M20.12 Hallux valgus (acquired), left foot M26.603 Bilateral temporomandibular joint disorder, unspecified Office Visit 10/01/2016 2:30p [facility] Jason Shah J45.51 Severe persistent SENIOR GEOTECHNICAL ENGINEER asthma with (acute) exacerbation J30.9 Allergic rhinitis, unspecified L20.9 Atopic dermatitis, unspecified F41.9 Anxiety disorder, unspecified F51.9 Sleep disorder not due to a sub or known physiol cond, unsp F17.210 Nicotine dependence, cigarettes, uncomplicated Z79.899 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 uncomplicated J30.9 Allergic rhinitis, unspecified L20.9 Atopic dermatitis, unspecified F41.9 Anxiety disorder, unspecified F51.9 Sleep disorder not due to a sub or known physiol cond, unsp F17.210 Nicotine dependence, cigarettes, uncomplicated Z79.899 Other long-term (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 F33.9 Major depressive disorder, recurrent, unspecified M20.12 Hallux valgus (acquired), left foot H66.93 Otitis media, unspecified, bilateral H92.03 Otalgia, bilateral R05 Cough R06.02 Shortness of breath R09.81 Nasal congestion M26.60 Temporomandibular joint disorder, unspecified Office Visit 09/27/2015 3:00p [facility] Jessica Thomas J45.909 Unspecified asthmaTamy M.D. 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 F33.9 Major depressive disorder, recurrent, unspecified M20.12 Hallux valgus (acquired), left foot Z00.01 Encounter for general adult medical exam w abnormal findings Office Visit 06/22/2015 2:30p [facility] Jason Shah F41.9 Anxiety disorder, SENIOR GEOTECHNICAL ENGINEER unspecified F17.210 Nicotine dependence, cigarettes, uncomplicated F51.9 Sleep disorder not due to a sub or known physiol cond, unsp J30.2 Other seasonal allergic rhinitis J45.909 Unspecified asthma, uncomplicated Office Visit 05/23/2015 3:45p [facility] Jessica Thomas F41.9 Anxiety disorderTamy M.D. 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 F33.9 Major depressive disorder, recurrent, unspecified B07.9 Viral wart, unspecified M20.12 Hallux valgus (acquired), left foot Office Visit 04/20/2015 3:45p [facility] Jason Shah SENIOR GEOTECHNICAL ENGINEER 078.10 Viral Warts Unspec 300.00 Anxiety State Unspec 311 Depressive Disorder Not Elsewhere Spec 305.1 Tobacco Use Disorder Office Visit 04/06/2015 3:30p [facility] Jason Shah SENIOR GEOTECHNICAL ENGINEER 078.10 Viral Warts Unspec 300.00 Anxiety State Unspec 311 Depressive Disorder Not Elsewhere Spec 305.1 Tobacco Use Disorder Office Visit 03/23/2015 3:15p [facility] Jason Shah SENIOR GEOTECHNICAL ENGINEER 078.10 Viral Warts Unspec 300.00 Anxiety State Unspec 311 Depressive Disorder Not Elsewhere Spec 305.1 Tobacco Use Disorder Office Visit 12/15/2014 4:30p [facility] William Timothyamber Morelos, 466.0 Bronchitis Acute M.D. 461.8 Sinusitis Acute Other 382.9 Otitis Media Unspec 786.2 Cough 786.05 Shortness Of Breath 478.19 Other Disease Of Nasal Cavity And Sinuses 300.00 Anxiety State Unspec 311 Depressive Disorder Not Elsewhere Spec 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 780.79 Malaise And Fatigue Other 305.1 Tobacco Use Disorder 477.8 Rhinitis Allergic Due To Other Allergen Office Visit 09/16/2014 4:00p [facility] William Timothyamber Baker., 300.00 Anxiety State M.D. Unspec 311 Depressive Disorder Not Elsewhere Spec 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 780.79 Malaise And Fatigue Other 305.1 Tobacco Use Disorder 477.8 Rhinitis Allergic Due To Other Allergen Office Visit 08/16/2014 4:00p [facility] Monica Oneil, 305.1 Tobacco Use SENIOR GEOTECHNICAL ENGINEER Disorder 311 Depressive Disorder Not Elsewhere Spec 300.00 Anxiety State Unspec 477.9 Rhinitis Allergic Cause Unspec Office Visit 07/19/2014 4:15p [facility] Thad Monica, 381.04 Otitis Media SENIOR GEOTECHNICAL ENGINEER Allergic Serous Acute 311 Depressive Disorder Not Elsewhere Spec 300.00 Anxiety State Unspec 477.9 Rhinitis Allergic Cause Unspec 305.1 Tobacco Use Disorder Office Visit 06/22/2014 3:45p [facility] William Timothyamber Morelos, 300.00 Anxiety State M.D. Unspec 311 Depressive Disorder Not Elsewhere Spec 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 780.79 Malaise And Fatigue Other 305.1 Tobacco Use Disorder 477.8 Rhinitis Allergic Due To Other Allergen V04.81 Need For Prophylactic Vaccination & Inoculation/Influenza 466.0 Bronchitis Acute 382.9 Otitis Media Unspec 461.8 Sinusitis Acute Other 786.2 Cough 786.05 Shortness Of Breath 478.19 Other Disease Of Nasal Cavity And Sinuses 493.90 Asthma Unspec W/O Status Asthmaticus Office Visit 05/24/2014 3:45p [facility] Monica Oneil, V64.06 Vaccination Not SENIOR GEOTECHNICAL ENGINEER Carried Out Because Of Patient Refusal 477.8 Rhinitis Allergic Due To Other Allergen 305.1 Tobacco Use Disorder V58.69 Medications Traffic Officer (Current) Use Encounter 300.00 Anxiety State Unspec 311 Depressive Disorder Not Elsewhere Spec Office Visit 04/21/2014 2:15p [facility] Thad, 558.9 Gastroenteritis & Monica, SENIOR GEOTECHNICAL ENGINEER Colitis Noninfectious Other 477.8 Rhinitis Allergic Due To Other Allergen 305.1 Tobacco Use Disorder 381.04 Otitis Media Allergic Serous Acute Office Visit 04/15/2014 3:30p [facility] Thad Monica, 477.8 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 Other Allergen 300.00 Anxiety State Unspec 311 Depressive Disorder Not Elsewhere Spec 305.1 Tobacco Use Disorder V58.69 Medications Traffic Officer (Current) Use Encounter Office Visit 03/25/2014 3:15p [facility] Thad Monica, 477.8 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 Other Allergen 300.00 Anxiety State Unspec 381.04 Otitis Media Allergic Serous Acute 311 Depressive Disorder Not Elsewhere Spec 305.1 Tobacco Use Disorder Office Visit 02/03/2014 2:00p [facility] Cory, 681.10 Cellulitis & Kaitlyn, SENIOR GEOTECHNICAL ENGINEER Abscess Toe Unspec 300.00 Anxiety State Unspec 311 Depressive Disorder Not Elsewhere Spec 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 305.1 Tobacco Use Disorder V85.23 Body Mass Index 27.0-27.9 Adult V58.69 Medications Traffic Officer (Current) Use Encounter Office Visit 01/12/2014 3:45p [facility] Kaitlyn Ray, 477.8 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 Other Allergen 780.79 Malaise And Fatigue Other 300.00 Anxiety State Unspec 311 Depressive Disorder Not Elsewhere Spec 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 305.1 Tobacco Use Disorder V85.23 Body Mass Index 27.0-27.9 Adult Office Visit 12/18/2013 2:15p [facility] Kaitlyn Ray, 787.01 Nausea W/ SENIOR GEOTECHNICAL ENGINEER Vomiting 787.91 Diarrhea 789.07 Pain Abdominal Generalized 477.8 Rhinitis Allergic Due To Other Allergen 780.79 Malaise And Fatigue Other Office Visit 12/15/2013 4:00p [facility] Jessica Thomas, 300.00 Anxiety State M.D. Unspec 311 Depressive Disorder Not Elsewhere Spec 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 305.1 Tobacco Use Disorder 477.8 Rhinitis Allergic Due To Other Allergen 780.79 Malaise And Fatigue Other V70.0 Examination General Medical Routine AT Health Care Facility V85.23 Body Mass Index 27.0-27.9 Adult Office Visit 11/13/2013 11:15a [facility] Kaitlyn Ray, 382.9 Otitis Media SENIOR GEOTECHNICAL ENGINEER Unspec 388.70 Otalgia & Earache Unspec 462 Pharyngitis Acute 461.9 Sinusitis Acute Unspec 780.79 Malaise And Fatigue Other 478.19 Other Disease Of Nasal Cavity And Sinuses 477.8 Rhinitis Allergic Due To Other Allergen 305.1 Tobacco Use Disorder 300.00 Anxiety State Unspec 311 Depressive Disorder Not Elsewhere Spec 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 Office Visit 10/20/2013 2:00p [facility] Kaitlyn Ray, 477.8 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 Other 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 305.1 Tobacco Use Disorder 300.00 Anxiety State Unspec 311 Depressive Disorder Not Elsewhere Spec 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 780.79 Malaise And Fatigue Other Office Visit 09/21/2013 3:30p [facility] Kaitlyn Ray, 461.8 Sinusitis Acute SENIOR GEOTECHNICAL ENGINEER Other 388.70 Otalgia & Earache Unspec 382.9 Otitis Media Unspec 780.79 Malaise And Fatigue Other 786.2 Cough 477.8 Rhinitis Allergic Due To Other Allergen 305.1 Tobacco Use Disorder 300.00 Anxiety State Unspec 311 Depressive Disorder Not Elsewhere Spec 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 Office Visit 03/17/2013 10:15a [facility] Kaitlyn Ray, 780.4 Dizziness & SENIOR GEOTECHNICAL ENGINEER Giddiness 780.79 Malaise And Fatigue Other 787.01 Nausea W/ Vomiting 787.91 Diarrhea 477.8 Rhinitis Allergic Due To Other Allergen Office Visit 03/12/2013 10:45a [facility] Kaitlyn Ray, 300.00 Anxiety State 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 Fatigue Other 300.00 Anxiety State Unspec 311 Depressive Disorder Not Elsewhere Spec Office Visit 04/24/2011 3:30p [facility] Jason Shah SENIOR GEOTECHNICAL ENGINEER 388.70 Otalgia & Earache Unspec 382.9 Otitis Media Unspec 300.00 Anxiety State Unspec Office Visit 03/27/2011 10:15a [facility] Jason ShahP 300.00 Anxiety State Unspec Office Visit 02/27/2011 11:30a [facility] William, Jamilmichael Morelos, 300.00 Anxiety State M.D. Unspec 311 Depressive Disorder Not Elsewhere Spec Office Visit 01/30/2011 10:00a [facility] William, Jamilmichael Morelos, 780.79 Malaise And M.D. Fatigue Other 300.00 Anxiety State Unspec 311 Depressive Disorder Not Elsewhere Spec Office Visit 01/02/2011 9:45a [facility] WilliamJessica hall 616.10 Vaginitis & M., M.D. Vulvovaginitis Unspec 599.0 UTI Urinary Tract Infection Site Not Spec 300.00 Anxiety State Unspec 311 Depressive Disorder Not Elsewhere Spec Office Visit 12/05/2010 11:30a [facility] William, Jamilmichael Morelos, 780.79 Malaise And M.D. 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 Fatigue Other 300.00 Anxiety State Unspec 311 Depressive Disorder Not Elsewhere Spec Office Visit 08/15/2010 9:30a [facility] Jamil Thomasmichael Baker., 780.79 Malaise And M.D. 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 Unspec 300.00 Anxiety State Unspec 311 Depressive Disorder Not Elsewhere Spec Office Visit 06/20/2010 10:00a [facility] William Jamilmichael Morelos, 388.70 Otalgia & Earache M.D. Unspec 382.9 Otitis Media Unspec 300.00 Anxiety State Unspec Office Visit 05/02/2010 2:00p [facility] William Jamilmichael Morelos, 311 Depressive Disorder M.D. Not Elsewhere Spec 300.00 Anxiety State Unspec Office Visit 03/28/2010 3:30p [facility] William Timothyamber Baker., 780.79 Malaise And M.D. Fatigue Other 300.00 Anxiety State Unspec 311 Depressive Disorder Not Elsewhere Spec Office Visit 01/24/2010 9:45a [facility] William, Jamilmichael Baker., 780.79 Malaise And M.D. 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 Fatigue Other 305.1 Tobacco Use Disorder 311 Depressive Disorder Not Elsewhere Spec 300.00 Anxiety State Unspec Office Visit 12/08/2009 9:45a [facility] Jessica Thomas 786.05 Shortness Of M., M.D. Breath 466.0 Bronchitis Acute 461.8 Sinusitis Acute Other 300.00 Anxiety State Unspec Office Visit 11/02/2009 3:30p [facility] Jessica Thomas., M.D. 784.0 Headache 786.05 Shortness Of Breath 300.00 Anxiety State Unspec 311 Depressive Disorder Not Elsewhere Spec Office Visit 08/23/2009 10:00a [facility] Jessica Thomas., 780.79 Malaise And M.D. Fatigue Other 311 Depressive Disorder Not Elsewhere Spec 300.00 Anxiety State Unspec Office Visit 06/21/2009 11:00a [facility] Jessica Thomas., 780.79 Malaise And M.D. 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 Unspec Plan of Treatment 07/16/2018 - Darnell Barbosa N.P.J45.909 Unspecified asthma, uncomplicatedComments:MDI / NEBULIZER TX PRN AVOID EXPOSURE TO SMOKING OR FUMES SMOKING CESSATION INCREASE PO FLUIDTYLENOL OR MOTRIN PRN ANTIHISTAMINE PRNJ44.9 Chronic obstructive pulmonary disease, unspecifiedComments:INCREASE PO FLUIDRESTSMOKING [id number] Allergic rhinitis, unspecifiedNew Medication: Benadryl Allergy 25 mg - 2 tab by mouth every night at bedtime as needed congestionComments:INCREASE PO FLUID USE ANTIHISTAMINE PRN SECOND HAND SMOKING AVOIDANCE SMOKING LCUGQIOCSJ70.9 Atopic dermatitis, unspecifiedComments:SKIN CARE INSTRUCTIONS LOTION OR BABY OIL 2-3 APPLICATION PER DAYUSE MOISTURIZING SOAPAVOID PROLONGED WATER EXPOSUREAVOID USING HOT WATER IN SPJDWIO25.9 Major depressive disorder, recurrent, unspecifiedComments:COUNCELLING AND REASSURANCE RELAXATION TECHNIQUES DISCUSSED COUNSELED RE: STRESSORS IN LIFEM20.12 Hallux valgus (acquired), left footComments:FOOT CARE INSTRUCTIONSUSE CUSHIONS F/U WITH PODIATRY PRNM26.603 Bilateral temporomandibular joint disorder, unspecifiedComments:OBSERVEF/U WITH ENT PRNSOFT DIETZ79.899 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 ( 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Comments:REVIEWED MEDICATIONS AND DIRECTIONS WITH PATIENT DUR XZTVORGC85.9 Anxiety disorder, unspecifiedComments:COUNCELLING AND REASSURANCE RELAXATION TECHNIQUES DISCUSSEDCOUNSELED RE: STRESSORS IN LIFE AVOID ALLENERGY/HIGH CAFFEINE DRINKS DUR DHEYREPZ27.00 Insomnia, unspecifiedComments:COUNCELLING AND REASSURANCE RELAXATION TECHNIQUES DISCUSSED COUNSELED RE: STRESSORS IN LIFE TYLENOLPM OR MOTRIN PM PRN DUR LXUKWWXZ85.4 PresbyopiaComments:USE GLASSES/CONTACTSF/U WITH PEXPDTOHRITKBJ29.569 Pain in unspecified kneeComments:EXERCISE/HEAT /MESSAGEAVOID HEAVY LIFTING WT LOSSTYLENOL OR MOTRIN PRNE78.2 Mixed hyperlipidemiaComments:DIET REVIEWED CONTINUE DIETWT LOSSF/U LAB FBWE55.9 Vitamin D deficiency, unspecifiedComments: INCREASE EXPOSURE TO SUNREVIEW OF DIETR09.81 Nasal congestionComments:INCREASE PO FLUIDTYLENOL OR MOTRIN PRNREST USE ANTIHISTAMINE PRNR05 CoughComments: INCREASE CLEAR LIQUIDSSTEAMGARGLE WARM SALT H2O TID ROBITUSSIN DM PRNH92.03 Otalgia, bilateralComments:INCREASE PO FLUIDTYLENOL OR MOTRIN PRNANTIHISTAMINE JSMQQIQI37.40 Acute pansinusitis, unspecifiedNew Medication:Amoxicillin/ Clavulanate Potassium 875-125 mg - 1 tab by mouth twice a dayComments:INCREASE PO FLUIDTYLENOL OR MOTRIN PRN ANTIHISTAMINE PRN
[2018-08-11 14:00] VITALS: BP 117/92
--- NOTE | 2018-08-11 15:05 | UC ---
Complaint Female HPI - HPI Summary HPI Summary: 37 y/o female with h/o sinus infection s/p abx x 20 days, noted last to have yeast infection with increased itching, pain, burning with urination, started 3 days OTC miconazole, mild improvement but symptomes return, now pain with walking, increased pain with urination, embarrassed about condition no DM, no immunocompromised NO GI pain, abdominal pains, feve,r chills. - History Of Current Complaint Chief Complaint: [facility] Stated Complaint: PERSONAL (FEMALE) Time Seen by Provider: 08/11/18 14:10 Hx Obtained From: Patient Hx Last Menstrual Period: 07/12/18 Onset/Duration: Sudden Onset, Lasting Days, Worse Since - worsening daily Timing: Constant Severity Initially: Moderate Severity Currently: Severe Pain Intensity: 10 Pain Scale Used: 0-10 Numeric Character: Sharp, Burning Aggravating Factor(s): Movement, Urination Alleviating Factor(s): Meds Associated Signs And Symptoms: Negative: Fever - Allergies/Home Medications Allergies/Adverse Reactions: Allergies Allergy/AdvReac Type Severity Reaction Status Date / Time No Known Allergies Allergy Verified 08/11/18 14:00 PMH/Surg Hx/FS Hx/Imm Hx Previously Healthy: Yes - h/o sinusitis requiring abx x 2 - Surgical History Surgical History: Yes Surgery Procedure, Year, and Place: ectopic - Social History Alcohol Use: None Substance Use Type: None Smoking Status (MU): Former Smoker Type: Cigarettes Amount Used/How Often: 1/2 PPD Length of Time of Smoking/Using Tobacco: 19 Years Have You Smoked in the Last Year: Yes When Did the Patient Quit Smoking/Using Tobacco: 2015 - Immunization History Most Recent Influenza Vaccination: June 2014 Most Recent Tetanus Shot: unsure (to be updated 05/27/15) Review of Systems All Other Systems Reviewed And Are Negative: Yes Genitourinary: Positive: Dysuria, Vaginal/Penile Burning, Vaginal/Penile Itching , Vaginal/Penile Discharge, Vaginal/Penile Pain, Vaginal/Penile Tenderness Musculoskeletal: Positive: Edema Is Patient Immunocompromised?: No Physical Exam Triage Information Reviewed: Yes Appearance: Well-Appearing, Well-Nourished, Pain Distress - mild Vital Signs: Initial Vital Signs Temp 97.9 F 08/11/18 13:56 Pulse 93 08/11/18 13:56 Resp 16 08/11/18 13:56 BP 117/92 08/11/18 13:56 Pulse Ox 100 08/11/18 13:56 Vital Signs Reviewed: Yes Abdomen Description: Positive: Nontender, No Organomegaly, Soft. Negative: Bruit Pelvic Exam: Positive: Speculum Exam Normal, Discharge - white, cottage cheese light discharge, small mucopurulent drainage frm b/l labia without open wound/ sores nted, + edema to external labia with multiple excoriations. Negative: Bimanual Exam Normal, Lesions, Mass, Tender w/ Cervical Motion, Tender Adnexa, Tender Uterus Musculoskeletal Exam: Normal Psychological: Positive: Other: - anxious Complaint Female Dx - Course Course Of Treatment: no abx d/t candidiasis, fluconazole x 2 doses 2 days apart , topical miconazole mixed with bacitracin - Differential Dx/Diagnosis Provider Diagnosis: Lauren infection of genital region Discharge - Sign-Out/Discharge Documenting (check all that apply): Patient Departure All imaging exams completed and their final reports reviewed: No Studies - Discharge Plan Condition: Good Disposition: HOME Prescriptions: Fluconazole 150 MG TAB* [Diflucan 150 MG TAB*] 150 mg PO DAILY #2 tablet Miconazole TOPICAL CREAM 2%* [Monistat 2%*] 1 applic TOPICAL TID #1 tube Patient Education Materials: Yeast Infection (ED), Vaginitis (ED) Referrals: Jessica Thomas MD [Primary Care Provider] - Additional Instructions: - Miconazole cream mixed with bacitracin three times daily to labia - Fluconazole 150 mg every 3 days for 2 doses - Motrin 600mg every 6 hours for 2-3 days to help with pain, inflammation - GO to the ER with fever, chills, increased pain, worsening discharge - Billing Disposition and Condition Condition: GOOD Disposition: Home
== END 2018-08-11 15:00 | disposition home or self-care (01) ==
LOC: UCEAST 13:54
DX: B37.49 Other urogenital candidiasis (principal); Z87.891 Personal history of nicotine dependence
CPT/HCPCS: 99212; G0463

== ENCOUNTER 2019-10-20 08:24 | Emergency (ER) | payer BC, OTHER ==
--- OUTSIDE RECORDS SUMMARY | 2019-10-20 08:32 | XMS REPORT | Continuity of Care Document ---
:1980 External Reference #:[id number] Author Name Jessica Thomas M.D. 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 Onset: Depressive disorder Jessica Thomas M.D. Onset: Tobacco user Jessica Thomas M.D. Onset: Allergic rhinitis Jessica Thomas M.D. Onset: Non-organic sleep disorder Jessica Thomas M.D. Onset: 09/02/2012 Asthma without status asthmaticus Jessica Thomas M.D. Onset: 06/22/2014 Major depressive disorder, single episode, Jessica Thomas M.D. Onset: 05/23 unspecified Other malaise Jessica Thomas M.D. Onset: 05/23/2015 Exacerbation of asthma Onset: 09/09/2016 Acute exacerbation of asthma Onset: 05/26/2016 Asthmatic bronchitis Onset: 01/23/2017 Bronchitis Onset: 05/26/2016 Pneumonia Onset: 09/09/2016 Substance abuse Onset: 10/14/2014 Social History Type Date Description Comments Sex Unknown Tobacco Use Start: Unknown End: Former Cigarette Smoker Unknown Smoking Status Reviewed: 01/16/19 Former Cigarette Smoker ETOH Use Rarely consumed alcohol in the past Tobacco Use Start: Unknown End: Patient is a former smoker QUIT JANUARY 2017 Unknown Allergies, Adverse Reactions, Alerts Description No Known Drug Allergies Medications Active Medications SIG Qnty Indications Ordering Date Provider Symbicort inhale 1 puff by 30.6gm J45.909 Jessica Thomas, 10/21/2018 mouth twice a day M.D. 160-4.5mcg/Act Aerosol Benadryl Allergy 2 tab by mouth 60tabs J30.9 Jessica Thomas, 07/16/2018 25mg every night at M.D. Tablets bedtime as needed congestion Zyrtec Allergy 1 by mouth every 30tabs J30.9 Jessica Thomas, 07/19/2014 10mg day M.D. Tablets Proair HFA inhale 2 puffs by 17gm J45.909 Jessica Thomas, 06/22/2014 mouth every 4 hours M.D. 108(90Base) mcg/Act if needed Aerosol R06.02 Fluticasone Propionate 2 sprays to each 1bottle J30.9 Jessica Thomas, nostril every day M.D. 50mcg/Act Suspension Xanax 1 tab by mouth 90tabs F41.9 Jessica Thomas, 11/19/2011 0.5mg Tablets three times a day M.D. as needed G47.00 Citalopram Hydrobromide take one tablet by 90tabs F41.9 Jessica Thomas, 11/19/2011 40mg mouth at bedtime M.D. Tablets F32.9 R53.81 Medications Administered in Office Medication SIG Qnty Indications Ordering Provider Date Rocephin 250 Jessica Thomas M.D. 07/26/2016 Injection Immunizations CPT Code Status Date Vaccine Lot # 30431 Given 05/27/2015 TDaP 62345 Given 06/29/2014 Flu Vaccine [id number] Given 06/22/2014 Flu Vaccine [id number] Vital Signs Date Vital Result Comment 10/15/2019 2:35pm BP Systolic 116 mmHg BP Diastolic 65 mmHg Height 64 inches 5'4" Weight 156.00 lb BMI (Body Mass Index) 26.8 kg/m2 Heart Rate 85 /min Respiratory Rate 16 /min 09/17/2019 2:29pm BP Systolic 125 mmHg BP Diastolic 70 mmHg Height 64 inches 5'4" Weight 155.00 lb BMI (Body Mass Index) 26.6 kg/m2 Heart Rate 100 /min Respiratory Rate 16 /min Results Description No Information Available Procedures Description No Information Available Medical Devices Description No Information Available Encounters Type Date Location Provider Dx Diagnosis Office Visit 10/15/2019 [facility] William Timothyamber OliviaJudi J45.909 Unspecified asthma, 2:30p M.DJudi uncomplicated J44.9 Chronic obstructive pulmonary disease, unspecified J30.9 Allergic rhinitis, unspecified L20.9 Atopic dermatitis, unspecified F33.9 Major depressive disorder, recurrent, unspecified M20.12 Hallux valgus (acquired), left foot M26.603 Bilateral temporomandibular joint disorder, unspecified 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 uncomplicated J44.9 Chronic obstructive pulmonary disease, unspecified J30.9 Allergic rhinitis, unspecified L20.9 Atopic dermatitis, unspecified F33.9 Major depressive disorder, recurrent, unspecified M20.12 Hallux valgus (acquired), left foot M26.603 Bilateral temporomandibular joint disorder, unspecified Z79.899 Other group home (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 F41.9 Anxiety disorder, unspecified G47.00 Insomnia, unspecified H52.4 Presbyopia M25.569 Pain in unspecified knee E78.2 Mixed hyperlipidemia E55.9 Vitamin D deficiency, unspecified F17.211 Nicotine dependence, cigarettes, in remission [facility]909 Unspecified asthma, Jordan Morelos. uncomplicated J44.9 Chronic obstructive pulmonary disease, unspecified J30.9 Allergic rhinitis, unspecified L20.9 Atopic dermatitis, unspecified F33.9 Major depressive disorder, recurrent, unspecified M20.12 Hallux valgus (acquired), left foot M26.603 Bilateral temporomandibular joint disorder, unspecified Z79.899 Other group home (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 F41.9 Anxiety disorder, unspecified G47.00 Insomnia, unspecified H52.4 Presbyopia M25.569 Pain in unspecified knee E78.2 Mixed hyperlipidemia E55.9 Vitamin D deficiency, unspecified F17.211 Nicotine dependence, cigarettes, in remission Office Visit 06/18/2019 [facility] J[facility].909 Unspecified asthma, Jordan Morelos. uncomplicated J44.9 Chronic obstructive pulmonary disease, unspecified J30.9 Allergic rhinitis, unspecified L20.9 Atopic dermatitis, unspecified F33.9 Major depressive disorder, recurrent, unspecified M20.12 Hallux valgus (acquired), left foot M26.603 Bilateral temporomandibular joint disorder, unspecified Z79.899 Other group home (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 F41.9 Anxiety disorder, unspecified G47.00 Insomnia, unspecified H52.4 Presbyopia M25.569 Pain in unspecified knee E78.2 Mixed hyperlipidemia E55.9 Vitamin D deficiency, unspecified F17.211 Nicotine dependence, cigarettes, in remission Office Visit [facility] J[facility].909 Unspecified Tamy mendoza M.D. 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 10/15/2019 J44.9 Chronic obstructive pulmonary disease, Jessica Thomas M.D. unspecified 10/15/2019 J30.9 Allergic rhinitis, unspecified Jessica Thomas M.D. 10/15/2019 L20.9 Atopic dermatitis, unspecified Jessica Thomas M.D. 10/15/2019 F33.9 Major depressive disorder, recurrent, Jessica Thomas M.D. unspecified 10/15/2019 M20.12 Hallux valgus (acquired), left foot Jessica Thomas M.D. 10/15/2019 M26.603 Bilateral temporomandibular joint disorder, Jessica Thomas M.D. unspecified 10/15/2019 Z79.899 Other group home (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 Jessica Thomas M.D. 10/15/2019 F41.9 Anxiety disorder, unspecified Jessica Thomas M.D. 10/15/2019 G47.00 Insomnia, unspecified Jessica Thomas M.D. 10/15/2019 H52.4 Presbyopia Jessica Thomas M.D. 10/15/2019 M25.569 Pain in unspecified knee Jessica Thomas M.D. 10/15/2019 E78.2 Mixed hyperlipidemia Jessica Thomas M.D. 10/15/2019 E55.9 Vitamin D deficiency, unspecified Jessica Thomas M.D. 10/15/2019 F17.211 Nicotine dependence, cigarettes, in Jessica Thomas M.D. remission 10/15/2019 J00 Acute nasopharyngitis [common cold] Jessica Thomas M.D. 09/17/2019 J45.909 Unspecified asthma, uncomplicated Jessica Thomas M.D. 09/17/2019 J44.9 Chronic obstructive pulmonary disease, Jessica Thomas M.D. unspecified 09/17/2019 J30.9 Allergic rhinitis, unspecified Jessica Thomas M.D. 09/17/2019 L20.9 Atopic dermatitis, unspecified Jessica Thomas M.D. 09/17/2019 F33.9 Major depressive disorder, recurrent, Jessica Thomas M.D. unspecified 09/17/2019 M20.12 Hallux valgus (acquired), left foot Jessica Thomas M.D. 09/17/2019 M26.603 Bilateral temporomandibular joint disorder, WilliamJessica M.D. 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 09/17/2019 F41.9 Anxiety disorder, unspecified Jessica Thomas M.D. 09/17/2019 G47.00 Insomnia, unspecified Jessica Thomas M.D. 09/17/2019 H52.4 Presbyopia Jessica Thomas M.D. 09/17/2019 M25.569 Pain in unspecified knee Jessica Thomas M.D. 09/17/2019 E78.2 Mixed hyperlipidemia Jessica Thomas M.D. 09/17/2019 E55.9 Vitamin D deficiency, unspecified Jessica Thomas M.D. 09/17/2019 F17.211 Nicotine dependence, cigarettes, in WilliamJessica hall M.D. remission 08/12/2019 J45.909 Unspecified asthma, uncomplicated Darnell Barbosa, N.P. 08/12/2019 J44.9 Chronic obstructive pulmonary disease, Darnell Barbosa, N.P. unspecified 08/12/2019 J30.9 Allergic rhinitis, unspecified Darnell Barbosa, N.P. 08/12/2019 L20.9 Atopic dermatitis, unspecified Darnell Barbosa, N.P. 08/12/2019 F33.9 Major depressive disorder, recurrent, Darnell Barbosa, N.P. unspecified 08/12/2019 M20.12 Hallux valgus (acquired), left foot Darnell Barbosa, N.P. 08/12/2019 M26.603 Bilateral temporomandibular joint disorder, Darnell Barbosa , N.P. 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 08/12/2019 F41.9 Anxiety disorder, unspecified Darnell Barbosa, N.P. 08/12/2019 G47.00 Insomnia, unspecified Darnell Barbosa, N.P. 08/12/2019 H52.4 Presbyopia Darnell Barbosa, N.P. 08/12/2019 M25.569 Pain in unspecified knee Darnell Barbosa, N.P. 08/12/2019 E78.2 Mixed hyperlipidemia Darnell Barbosa, N.P. 08/12/2019 E55.9 Vitamin D deficiency, unspecified Darnell Barbosa, N.P. 08/12/2019 F17.211 Nicotine dependence, cigarettes, in Darnell Barbosa, N.P. remission 07/16/2019 J45.909 Unspecified asthma, uncomplicated Jessica Thomas M.D. 07/16/2019 J44.9 Chronic obstructive pulmonary disease, Jessica Thomas M.D. unspecified 07/16/2019 J30.9 Allergic rhinitis, unspecified Jessica Thomas M.D. 07/16/2019 L20.9 Atopic dermatitis, unspecified Jessica Thomas M.D. 07/16/2019 F33.9 Major depressive disorder, recurrent, Jessica Thomas M.D. unspecified 07/16/2019 M20.12 Hallux valgus (acquired), left foot Jessica Thomas M.D. 07/16/2019 M26.603 Bilateral temporomandibular joint disorder, Jessica Thomas M.D. 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 07/16/2019 F41.9 Anxiety disorder, unspecified Jessica Thomas M.D. 07/16/2019 G47.00 Insomnia, unspecified Jessica Thomas M.D. 07/16/2019 H52.4 Presbyopia Jessica Thomas M.D. 07/16/2019 M25.569 Pain in unspecified knee Jessica Thomas M.D. 07/16/2019 E78.2 Mixed hyperlipidemia Jessica Thomas M.D. 07/16/2019 E55.9 Vitamin D deficiency, unspecified Jessica Thomas M.D. 07/16/2019 F17.211 Nicotine dependence, cigarettes, in Jessica Thomas M.D. remission 06/18/2019 J45.909 Unspecified asthma, uncomplicated Jessica Thomas M.D. 06/18/2019 J44.9 Chronic obstructive pulmonary disease, Jessica Thomas M.D. unspecified 06/18/2019 J30.9 Allergic rhinitis, unspecified Jessica Thomas M.D. 06/18/2019 L20.9 Atopic dermatitis, unspecified Jessica Thomas M.D. 06/18/2019 F33.9 Major depressive disorder, recurrent, Jessica Thomas M.D. unspecified 06/18/2019 M20.12 Hallux valgus (acquired), left foot Jessica Thomas M.D. 06/18/2019 M26.603 Bilateral temporomandibular joint disorder, Jessica Thomas M.D. unspecified 06/18/2019 Z79.899 Other group home (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 Jessica Thomas M.D. 06/18/2019 F41.9 Anxiety disorder, unspecified Jessica Thomas M.D. 06/18/2019 G47.00 Insomnia, unspecified Jessica Thomas M.D. 06/18/2019 H52.4 Presbyopia Jessica Thomas M.D. 06/18/2019 M25.569 Pain in unspecified knee Jessica Thomas M.D. 06/18/2019 E78.2 Mixed hyperlipidemia Jessica Thomas M.D. 06/18/2019 E55.9 Vitamin D deficiency, unspecified Jessica Thomas M.D. 06/18/2019 F17.211 Nicotine dependence, cigarettes, in Jessica Thomas M.D. remission 05/21/2019 J45.909 Unspecified asthma, uncomplicated Jessica Thomas M.D. 05/21/2019 J44.9 Chronic obstructive pulmonary disease, Jessica Thomas M.D. unspecified 05/21/2019 J30.9 Allergic rhinitis, unspecified Jessica Thomas M.D. 05/21/2019 L20.9 Atopic dermatitis, unspecified Jessica Thomas M.D. 05/21/2019 F33.9 Major depressive disorder, recurrent, Jessica Thomas M.D. unspecified 05/21/2019 M20.12 Hallux valgus (acquired), left foot Jessica Thomas M.D. 05/21/2019 M26.603 Bilateral temporomandibular joint disorder, Jessica Thomas M.D. unspecified 05/21/2019 Z79.899 Other group home (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 Jessica Thomas M.D. 05/21/2019 F41.9 Anxiety disorder, unspecified Jessica Thomas M.D. 05/21/2019 G47.00 Insomnia, unspecified Jessica Thomas M.D. 05/21/2019 H52.4 Presbyopia Jessica Thomas M.D. 05/21/2019 M25.569 Pain in unspecified knee Jessica Thomas M.D. 05/21/2019 E78.2 Mixed hyperlipidemia Jessica Thomas M.D. 05/21/2019 E55.9 Vitamin D deficiency, unspecified Jessica Thomas M.D. 05/21/2019 F17.211 Nicotine dependence, cigarettes, in Jessica Thomas M.D. remission 04/21/2019 J45.909 Unspecified asthma, uncomplicated Jessica Thomas M.D. 04/21/2019 J44.9 Chronic obstructive pulmonary disease, Jessica Thomas M.D. unspecified 04/21/2019 J30.9 Allergic rhinitis, unspecified Jessica Thomas M.D. 04/21/2019 L20.9 Atopic dermatitis, unspecified Jessica Thomas M.D. 04/21/2019 F33.9 Major depressive disorder, recurrent, Jessica Thomas M.D. unspecified 04/21/2019 M20.12 Hallux valgus (acquired), left foot Jessica Thomas M.D. 04/21/2019 M26.603 Bilateral temporomandibular joint disorder, Jessica Thomas M.D. 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 04/21/2019 F41.9 Anxiety disorder, unspecified Jessica Thomas M.D. 04/21/2019 G47.00 Insomnia, unspecified Jessica Thomas M.D. 04/21/2019 H52.4 Presbyopia Jessica Thomas M.D. 04/21/2019 M25.569 Pain in unspecified knee Jessica Thomas M.D. 04/21/2019 E78.2 Mixed hyperlipidemia Jessica Thomas M.D. 04/21/2019 E55.9 Vitamin D deficiency, unspecified Jessica Thomas M.D. 04/21/2019 F17.211 Nicotine dependence, cigarettes, in Jessica Thomas M.D. remission Plan of Treatment 10/15/2019 - Jessica Thomas M.D.J45.909 Unspecified asthma, uncomplicatedComments:MDI / NEBULIZER TX PRN AVOID EXPOSURE TO SMOKING OR FUMES SMOKING [id number] Chronic obstructive pulmonary disease, unspecifiedComments:INCREASE PO FLUIDRESTSMOKING [id number] Allergic rhinitis, unspecifiedComments:INCREASE PO FLUID USE ANTIHISTAMINE PRN SECOND HAND SMOKING AVOIDANCE SMOKING NKSYPBARDN39.9 Atopic dermatitis, unspecifiedComments:SKIN CARE INSTRUCTIONS LOTION OR BABY OIL 2-3 APPLICATION PER DAYUSE MOISTURIZING SOAPAVOID PROLONGED WATER EXPOSUREAVOID USING HOT WATER IN ELUMNOQ37.9 Major depressive disorder, recurrent, unspecifiedComments: COUNCELLING AND REASSURANCE RELAXATION TECHNIQUES DISCUSSED COUNSELED RE: STRESSORS IN LIFEM20.12 Hallux valgus (acquired), left footComments:FOOT CARE INSTRUCTIONSUSE CUSHIONS F/U WITH PODIATRY PRNM26.603 Bilateral temporomandibular joint disorder, unspecifiedComments:OBSERVEF/U WITH ENT PRNSOFT DIETZ79.899 Other termite control technician (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Comments:REVIEWED MEDICATIONS AND DIRECTIONS WITH PATIENT DUR CEDHCQEF92.9 Anxiety disorder, unspecifiedComments:COUNCELLING AND REASSURANCE RELAXATION TECHNIQUES DISCUSSEDCOUNSELED RE: STRESSORS IN LIFE AVOID ALLENERGY/HIGH CAFFEINE DRINKS DUR SXMGALTK93.00 Insomnia, unspecifiedComments:COUNCELLING AND REASSURANCE RELAXATION TECHNIQUES DISCUSSED COUNSELED RE: STRESSORS IN LIFE TYLENOLPM OR MOTRIN PM PRN DUR JGTTCEET12.4 PresbyopiaComments:USE GLASSES/CONTACTSF/U WITH HEPEDUKOOGBCUQ15.569 Pain in unspecified kneeComments:EXERCISE/HEAT / MESSAGEAVOID HEAVY LIFTING WT LOSSTYLENOL OR MOTRIN PRNE78.2 Mixed hyperlipidemiaComments:DIET REVIEWED CONTINUE DIETWT LOSSF/U LAB FBWE55.9 Vitamin D deficiency, unspecifiedComments:INCREASE EXPOSURE TO SUNREVIEW OF DIETF17.211 Nicotine dependence, cigarettes, in remissionComments:ENCOURAGED TO CONTINUE WITH SMOKING [id number] Acute nasopharyngitis [common cold]Comments: INCREASE PO FLUIDTYLENOL OR MOTRIN PRNREST USE ANTIHISTAMINE PRN RESOLVING Functional Status Functional Condition Comment Date Status .None Active Mental Status Description No Information Available Referrals Description No Information Available
--- OUTSIDE RECORDS SUMMARY | 2019-10-20 08:32 | XMS REPORT | Continuity of Care Document ---
:1980 External Reference #:[id number] Author Name Jessica Thomas M.D. 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 [...] CPT Code Status Date Vaccine Lot # [id number] Given 05/27/2015 TDaP [id number] Given 06/29/2014 Flu Vaccine [id number] Given 06/22/2014 Flu Vaccine [id number] Vital Signs Date Vital Result Comment 09/17/2019 2:29pm BP Systolic 125 mmHg BP Diastolic 70 mmHg Height 64 inches 5'4" Weight 155.00 lb BMI (Body Mass Index) 26.6 kg/m2 Heart Rate 100 /min Respiratory Rate 16 /min 08/12/2019 2:25pm BP Systolic 124 mmHg BP Diastolic 60 mmHg Height 64 inches 5'4" Weight 158.00 lb BMI (Body Mass Index) 27.1 kg/m2 Heart Rate 72 /min Respiratory Rate 16 /min Results Description No Information Available Procedures Description No Information Available Medical Devices Description No Information Available Encounters Type Date Location Provider Dx Diagnosis Office Visit 09/17/2019 [facility] Jessica Thomas J45.909 Unspecified asthma, 2:30p Olivia.Jade uncomplicated J44.9 Chronic obstructive pulmonary disease, unspecified J30.9 Allergic rhinitis, unspecified L20.9 Atopic dermatitis, unspecified F33.9 Major depressive disorder, recurrent, unspecified M20.12 Hallux valgus (acquired), left foot M26.603 Bilateral temporomandibular joint disorder, unspecified Z79.899 Other buttermaker continuous churn (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 F41.9 Anxiety disorder, unspecified G47.00 Insomnia, unspecified H52.4 Presbyopia M25.569 Pain in unspecified knee E78.2 Mixed hyperlipidemia E55.9 Vitamin D deficiency, unspecified F17.211 Nicotine dependence, cigarettes, in remission Office Visit 08/12/2019 2:30p [facility] Darnell Barbosa J45.909 Unspecified asthma, N.P. uncomplicated J44.9 Chronic obstructive pulmonary disease, unspecified J30.9 Allergic rhinitis, unspecified L20.9 Atopic dermatitis, unspecified F33.9 Major depressive disorder, recurrent, unspecified M20.12 Hallux valgus (acquired), left foot M26.603 Bilateral temporomandibular joint disorder, unspecified Z79.899 Other senior living (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 F41.9 Anxiety disorder, unspecified G47.00 Insomnia, unspecified H52.4 Presbyopia M25.569 Pain in unspecified knee E78.2 Mixed hyperlipidemia E55.9 Vitamin D deficiency, unspecified F17.211 Nicotine dependence, cigarettes, in remission Office Visit 07/16/2019 2:30p [facility] Jessica Thomas J45.909 Unspecified asthma, Tran Morelos uncomplicated J44.9 Chronic obstructive pulmonary disease, unspecified J30.9 Allergic rhinitis, unspecified L20.9 Atopic dermatitis, unspecified F33.9 Major depressive disorder, recurrent, unspecified M20.12 Hallux valgus (acquired), left foot M26.603 Bilateral temporomandibular joint disorder, unspecified Z79.899 Other senior living (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 F41.9 Anxiety disorder, unspecified G47.00 Insomnia, unspecified H52.4 Presbyopia M25.569 Pain in unspecified knee E78.2 Mixed hyperlipidemia E55.9 Vitamin D deficiency, unspecified F17.211 Nicotine dependence, cigarettes, in remission Office Visit 06/18/2019 2:15p [facility] Jessica Thomas J45.909 Unspecified asthma, M., MStephen. uncomplicated J44.9 Chronic obstructive pulmonary disease, unspecified J30.9 Allergic rhinitis, unspecified L20.9 Atopic dermatitis, unspecified F33.9 Major depressive disorder, recurrent, unspecified M20.12 Hallux valgus (acquired), left foot M26.603 Bilateral temporomandibular joint disorder, unspecified Z79.899 Other senior living (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 F41.9 Anxiety disorder, unspecified G47.00 Insomnia, unspecified H52.4 Presbyopia M25.569 Pain in unspecified knee E78.2 Mixed hyperlipidemia E55.9 Vitamin D deficiency, unspecified F17.211 Nicotine dependence, cigarettes, in remission Office Visit 05/21/2019 2:45p [facility] Jessica Thomas J45.909 Unspecified asthma, MJudi MStephen. uncomplicated J44.9 Chronic obstructive pulmonary disease, unspecified J30.9 Allergic rhinitis, unspecified L20.9 Atopic dermatitis, unspecified F33.9 Major depressive disorder, recurrent, unspecified M20.12 Hallux valgus (acquired), left foot M26.603 Bilateral temporomandibular joint disorder, unspecified Z79.899 Other buttermaker continuous churn (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 F41.9 Anxiety disorder, unspecified G47.00 Insomnia, unspecified H52.4 Presbyopia M25.569 Pain in unspecified knee E78.2 Mixed hyperlipidemia E55.9 Vitamin D deficiency, unspecified F17.211 Nicotine dependence, cigarettes, in remission [facility] asthma, M., M.D. uncomplicated J44.9 Chronic obstructive pulmonary disease, unspecified J30.9 Allergic rhinitis, unspecified L20.9 Atopic dermatitis, unspecified F33.9 Major depressive disorder, recurrent, unspecified M20.12 Hallux valgus (acquired), left foot M26.603 Bilateral temporomandibular joint disorder, unspecified Z79.899 Other senior living (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 F41.9 Anxiety disorder, unspecified G47.00 Insomnia, unspecified H52.4 Presbyopia M25.569 Pain in unspecified knee E78.2 Mixed hyperlipidemia E55.9 Vitamin D deficiency, unspecified F17.211 Nicotine dependence, cigarettes, in remission Office Visit 03/24/2019 3:15p [facility] Jessica Thomas J45.909 Unspecified Tamy mendoza M.D. uncomplicated J44.9 Chronic obstructive pulmonary disease, unspecified J30.9 Allergic rhinitis, unspecified L20.9 Atopic dermatitis, unspecified F33.9 Major depressive disorder, recurrent, unspecified M20.12 Hallux valgus (acquired), left foot M26.603 Bilateral temporomandibular joint disorder, unspecified Z79.899 Other buttermaker continuous churn (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 F41.9 Anxiety disorder, unspecified G47.00 Insomnia, unspecified H52.4 Presbyopia M25.569 Pain in unspecified knee E78.2 Mixed hyperlipidemia E55.9 Vitamin D deficiency, unspecified F17.211 Nicotine dependence, cigarettes, in remission Assessments Date Code Description Provider 09/17/2019 J45.909 Unspecified asthma, uncomplicated Jessica Thomas M.D. 09/17/2019 J44.9 Chronic obstructive pulmonary disease, Jessica Thomas M.D. unspecified 09/17/2019 J30.9 Allergic rhinitis, unspecified Jessica Thomas M.D. 09/17/2019 L20.9 Atopic dermatitis, unspecified Jessica Thomas M.D. 09/17/2019 F33.9 Major depressive disorder, recurrent, Jessica Thomas M.D. unspecified 09/17/2019 M20.12 Hallux valgus (acquired), left foot Jessica Thomas M.D. 09/17/2019 M26.603 Bilateral temporomandibular joint disorder, Jessica Thomas M.D. unspecified 09/17/2019 Z79.899 Other senior living (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 Jessica Thomas M.D. 09/17/2019 [...] Barbosa , N.P. unspecified 08/12/2019 Z79.899 Other buttermaker continuous churn (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 Darnell Barbosa, N.P. 08/12/2019 [...] Jessica Thomas M.D. unspecified 07/16/2019 Z79.899 Other buttermaker continuous churn (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 Jessica Thomas M.D. 07/16/2019 [...] Jessica Thomas M.D. unspecified 06/18/2019 Z79.899 Other buttermaker continuous churn (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 Jessica Thomas M.D. 06/18/2019 [...] Jessica Thomas M.D. unspecified 05/21/2019 Z79.899 Other buttermaker continuous churn (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 Jessica Thomas M.D. 05/21/2019 [...] Jessica Thomas M.D. unspecified 04/21/2019 Z79.899 Other buttermaker continuous churn (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 Jessica Thomas M.D. 04/21/2019 F41.9 Anxiety disorder, unspecified Jessica Thomas M.D. 04/21/2019 G47.00 Insomnia, unspecified Jessica Thomas M.D. 04/21/2019 H52.4 Presbyopia Jessica Thomas M.D. 04/21/2019 M25.569 Pain in unspecified knee Jessica Thomas M.D. 04/21/2019 E78.2 Mixed hyperlipidemia Jessica Thomas M.D. 04/21/2019 E55.9 Vitamin D deficiency, unspecified Jessica Thomas M.D. 04/21/2019 F17.211 Nicotine dependence, cigarettes, in Jessica Thomas M.D. remission 03/24/2019 J45.909 Unspecified asthma, uncomplicated Jessica Thomas M.D. 03/24/2019 J44.9 Chronic obstructive pulmonary disease, Jessica Thomas M.D. unspecified 03/24/2019 J30.9 Allergic rhinitis, unspecified Jessica Thomas M.D. 03/24/2019 L20.9 Atopic dermatitis, unspecified Jessica Thomas M.D. 03/24/2019 F33.9 Major depressive disorder, recurrent, Jessica Thomas M.D. unspecified 03/24/2019 M20.12 Hallux valgus (acquired), left foot Jessica Thomas M.D. 03/24/2019 M26.603 Bilateral temporomandibular joint disorder, Jessica Thomas M.D. unspecified 03/24/2019 Z79.899 Other senior living (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 Jessica Thomas M.D. 03/24/2019 F41.9 Anxiety disorder, unspecified Jessica Thomas M.D. 03/24/2019 G47.00 Insomnia, unspecified Jessica Thomas M.D. 03/24/2019 H52.4 Presbyopia Jessica Thomas M.D. 03/24/2019 M25.569 Pain in unspecified knee Jessica Thomas M.D. 03/24/2019 E78.2 Mixed hyperlipidemia Jessica Thomas M.D. 03/24/2019 E55.9 Vitamin D deficiency, unspecified Jessica Thomas M.D. 03/24/2019 F17.211 Nicotine dependence, cigarettes, in Jessica Thomas M.D. remission Plan of Treatment 09/17/2019 - Jessica Thomas M.D.J45.909 Unspecified asthma, uncomplicatedComments:MDI / NEBULIZER TX PRN AVOID EXPOSURE TO SMOKING OR FUMES SMOKING DJDXPHOWSE56.9 Chronic obstructive pulmonary disease, unspecifiedComments:INCREASE PO FLUIDRESTSMOKING FCRHZMJERX95.9 Allergic rhinitis, unspecifiedComments:INCREASE PO FLUID USE ANTIHISTAMINE PRN SECOND HAND SMOKING AVOIDANCE SMOKING GHADOGFIRG99.9 Atopic dermatitis, unspecifiedComments:SKIN CARE INSTRUCTIONS LOTION OR BABY OIL 2-3 APPLICATION PER DAYUSE MOISTURIZING SOAPAVOID PROLONGED WATER EXPOSUREAVOID USING HOT WATER IN YWHUMPT82.9 Major depressive disorder, recurrent, unspecifiedComments: COUNCELLING AND REASSURANCE RELAXATION TECHNIQUES DISCUSSED COUNSELED RE: STRESSORS IN LIFEM20.12 Hallux valgus (acquired), left footComments:FOOT CARE INSTRUCTIONSUSE CUSHIONS F/U WITH PODIATRY PRNM26.603 Bilateral temporomandibular joint disorder, unspecifiedComments:OBSERVEF/U WITH ENT PRNSOFT DIETZ79.899 Other senior living (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Comments:REVIEWED MEDICATIONS AND DIRECTIONS WITH PATIENT DUR BXACXNSJ90.9 Anxiety disorder, unspecifiedComments:COUNCELLING AND REASSURANCE RELAXATION TECHNIQUES DISCUSSEDCOUNSELED RE: STRESSORS IN LIFE AVOID ALLENERGY/HIGH CAFFEINE DRINKS DUR TGXEXSOW67.00 Insomnia, unspecifiedComments:COUNCELLING AND REASSURANCE RELAXATION TECHNIQUES DISCUSSED COUNSELED RE: STRESSORS IN LIFE TYLENOLPM OR MOTRIN PM PRN DUR OXETHYFX91.4 PresbyopiaComments:USE GLASSES/CONTACTSF/U WITH EKEPVHOWQFAWRF30.569 Pain in unspecified kneeComments:EXERCISE/HEAT / MESSAGEAVOID HEAVY LIFTING WT LOSSTYLENOL OR MOTRIN PRNE78.2 Mixed hyperlipidemiaComments:DIET REVIEWED CONTINUE DIETWT LOSSF/U LAB FBWE55.9 Vitamin D deficiency, unspecifiedComments:INCREASE EXPOSURE TO SUNREVIEW OF DIETF17.211 Nicotine dependence, cigarettes, in remissionComments:ENCOURAGED TO CONTINUE WITH SMOKING CESSATION Functional Status Functional Condition Comment Date Status .None Active Mental Status Description No Information Available Referrals Description No Information Available
[2019-10-20 08:46] VITALS: BP 117/67
[2019-10-20] MEDS ORDERED: Mupirocin 2% OINT* TUBE TOPICAL ONE (09:52)
--- NOTE | 2019-10-20 09:54 | UC ---
General HPI - HPI Summary HPI Summary: Patient started with a scab on her left distal forearm about a week ago - She states she always has itchy skin - admits to picking at the scab. About 2 days ago noticed it was getting worse with redness and started putting neosporin on it and covering it. Worked yesterday without much issue. But today she woke up and feels much worse, now swollen, red streaking and pus draining from area. NEver had anything like this happen to her before. Denies IVDU. No fever. No N/V. Otherwise feels well. MEds: Reviewed - History of Current Complaint Chief Complaint: UCWounds Stated Complaint: RED SWOLLEN AREA ON ARM Time Seen by Provider: 10/20/19 09:37 Hx Last Menstrual Period: [id number] Pain Intensity: 8 - Allergy/Home Medications Allergies/Adverse Reactions: Allergies Allergy/AdvReac Type Severity Reaction Status Date / Time No Known Allergies Allergy Verified 10/20/19 08:46 Home Medications: Home Medications medroxyPROGESTERone ACETATE* [DEPO-Provera*] 150 mg IM SEE INSTRUCTIONS [History Confirmed 08/11/18] Albuterol HFA INHALER* [Ventolin HFA Inhaler*] 1 - 2 puff INH Q4H PRN 11/22/14 [ History Confirmed 10/20/19] Citalopram TAB* [Celexa TAB*] 40 mg PO DAILY 05/27/15 [History Confirmed ] diPHENhydraMINE PO* [Benadryl PO*] 25 mg PO DAILY PRN 05/27/15 [History Confirmed 08/11/18] Clindamycin Cap(NF) [Clindamycin Cap 300 mg Cap(NF)] 300 mg PO Q6H #28 cap 10/20 [Rx] Mupirocin 2% OINT* [Bactroban 2 % Oint*] 1 applic TOPICAL BID #1 tube 10/20/19 [ Rx] PMH/Surg Hx/FS Hx/Imm Hx Previously Healthy: Yes - Surgical History Surgical History: Yes Surgery Procedure, Year, and Place: ectopic - Social History Alcohol Use: None Substance Use Type: None Smoking Status (MU): Former Smoker Type: Cigarettes Amount Used/How Often: 1/2 PPD Length of Time of Smoking/Using Tobacco: 19 Years Have You Smoked in the Last Year: Yes When Did the Patient Quit Smoking/Using Tobacco: 2016 - Immunization History Most Recent Influenza Vaccination: June 2014 Most Recent Tetanus Shot: will need last one 2014 Review of Systems All Other Systems Reviewed And Are Negative: Yes Physical Exam Triage Information Reviewed: Yes Appearance: Well-Appearing Vital Signs: Initial Vital Signs Temp 98.0 F 10/20/19 08:41 Pulse 97 10/20/19 08:41 Resp 21 10/20/19 08:41 BP 117/67 10/20/19 08:41 Pulse Ox 100 10/20/19 08:41 Vital Signs Reviewed: Yes Skin: Positive: Other - left distal forearm several 3-4 scabbed areas with surrounding erythem and minimal edema, one of scabbed areas has small areas of purulent drainage. FROM of wrist. Diffuse tenderness. No focal fluctuance or induration Course/Dx - Course Course Of Treatment: This is a 38 yr old with an infected wound Draining Wound culture collected - cellulitis with early abscess. Nothing drainable No concern for septic joint - movement with limited joint pain Plan Recommend starting Clindamycin as prescribed Use topical antibiotic mupiricin 2x/day and keep area covered when using it keep arm elevated, warm compress to area Stop neosporin If you develop a fever, and arm is more red, swollen and/or painful recommend going to the ER for further evalaution - Diagnoses Provider Diagnosis: Cellulitis Discharge ED - Sign-Out/Discharge Documenting (check all that apply): Patient Departure All imaging exams completed and their final reports reviewed: No Studies - Discharge Plan Condition: Fair Disposition: HOME Prescriptions: Clindamycin Cap(NF) [Clindamycin Cap 300 mg Cap(NF)] 300 mg PO Q6H #28 cap Mupirocin 2% OINT* [Bactroban 2 % Oint*] 1 applic TOPICAL BID #1 tube Patient Education Materials: Cellulitis (ED) Forms: *Work Release Referrals: Jessica Thomas MD [Primary Care Provider] - Additional Instructions: Recommend starting Clindamycin as prescribed Use topical antibiotic mupiricin 2x/day and keep area covered when using it keep arm elevated, warm compress to area Stop neosporin If you develop a fever, and arm is more red, swollen and/or painful recommend going to the ER for further evalaution - Billing Disposition and Condition Condition: FAIR Disposition: Home
--- NOTE | 2019-10-21 22:12 | UC ---
- Progress Note Progress Note: Patient wound culture final results positive for MRSA. Contact patient with results and check symptom improvement. Inform her that current treatment with clindamycin is appropriate and to continue with course. Course/Dx - Diagnoses Provider Diagnoses: Cellulitis Discharge ED - Sign-Out/Discharge Documenting (check all that apply): Post-Discharge Follow Up All imaging exams completed and their final reports reviewed: No Studies - Discharge Plan Condition: Fair Disposition: HOME Prescriptions: Clindamycin Cap(NF) [Clindamycin Cap 300 mg Cap(NF)] 300 mg PO Q6H #28 cap Mupirocin 2% OINT* [Bactroban 2 % Oint*] 1 applic TOPICAL BID #1 tube Patient Education Materials: Cellulitis (ED) Forms: *Work Release Referrals: Jessica Thomas MD [Primary Care Provider] - Additional Instructions: Recommend starting Clindamycin as prescribed Use topical antibiotic mupiricin 2x/day and keep area covered when using it keep arm elevated, warm compress to area Stop neosporin If you develop a fever, and arm is more red, swollen and/or painful recommend going to the ER for further evalaution - Billing Disposition and Condition Condition: FAIR Disposition: Home
== END 2019-10-20 10:09 | disposition home or self-care (01) ==
LOC: UCEAST 08:24
DX: L03.114 Cellulitis of left upper limb (principal); Z87.891 Personal history of nicotine dependence
CPT/HCPCS: 87070; 87205; 87640; 87641; 99212; G0463